=== PATIENT | male | born 1940 | race Caucasian/White ===

== ENCOUNTER → 2018-07-08 11:35 | Outpatient (CLI) | payer MEDICARE, OTHER, SELFPAY ==
[2018-07-08 12:09] LABS: Add Manual Diff / Slide Review NO; Eosinophils Percent Auto 2.6 % (2-4); Hematocrit 40.6 % (41-53); Mean Corpuscular HGB Conc 34.5 % (30-36); Mean Corpuscular Hemoglobin 32.6 PG (26-34); Mean Corpuscular Volume 94.5 fL (80-100); Monocytes Percent Auto 11.2 % (3-14); Neutrophils Absolute Auto 3800 /uL (3000-5900); Neutrophils Percent Auto 67.2 % (50-75); Platelet Count 279 X10^3/uL (150-400); Red Cell Distribution Width 13.2 % (11.6-14.8); White Blood Cell Count 5.7 X10^3/uL (4.5-11.0)
[2018-07-08 12:45] LABS: Alanine Aminotransferase 30 IU/L (21-72); Albumin 4.1 g/dL (3.5-5.0); Albumin Globulin Ratio 1.5 (1.0-2.8); Alkaline Phosphatase 57 U/L (38-126); Aspartate Aminotransferase 53 IU/L (17-59); Bilirubin Total 0.8 mg/dL (0.2-1.3); Blood Urea Nitrogen 6 mg/dL (9-20); Calcium 9.5 mg/dL (8.4-10.2); Carbon Dioxide 29 mmol/L (22-32); Chloride 99 mmol/L (98-107); Estimated Glomerular Filt Rate > 60.0 mL/min (>60); Globulin 2.7 g/dL (1.7-4.1); Glucose 96 mg/dL (80-110); HEMOLYSIS < 15 (0-50); Potassium 4.7 mmol/L (3.4-5.1); Sodium 135 mmol/L (137-145); Total Protein 6.8 g/dL (6.3-8.2)
[2018-07-08 12:52] LABS: Free T4, Direct Thyroxine 1.55 ng/dL (0.78-2.19)
[2018-07-08 13:06] LABS: Thyroid Stimulating Hormone 0.26 uIU/mL (0.47-4.68)
== END ==
PROVIDERS: PCP Internal Medicine; Visit Provider Internal Medicine
DX: E03.9 Hypothyroidism, unspecified (principal); I10 Essential (primary) hypertension; I25.10 Atherosclerotic heart disease of native coronary artery without angina pectoris
CPT/HCPCS: 80053; 84439; 84443; 85025

== ENCOUNTER → 2018-08-04 11:00 | Outpatient (CLI) | payer MEDICARE, OTHER, SELFPAY ==
--- NOTE | 2018-08-19 07:48 | P.HOLT.S_ITS ---
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 Referral & Results Date Patient Seen: 08/04/18 Requesting provider: Uriah Mooney Indication: Cardiac arrhythmia Duration of monitoring (days): 7 Diary information: There were no patient diary entries and no patient triggered events Data: Minimum heart rate identified was 55 beats per minute at 07:49 on 2017 Maximum sinus heart rate was 123 beats per minute at 22:36 on 08/08/2018 Maximum overall heart rate was 130 beats per minute at 10:01 on 08/10/2018 occurring during a 7 beat run of supraventricular tachycardia Less than 1% of identified beats or either ventricular supraventricular ectopic in origin Impression: 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
== END ==
PROVIDERS: PCP Internal Medicine; Visit Provider Internal Medicine
DX: I49.9 Cardiac arrhythmia, unspecified (principal)
CPT/HCPCS: 0296T; 0298T

== ENCOUNTER → 2019-02-08 10:43 | Outpatient (CLI) | payer MEDICARE, OTHER, SELFPAY ==
[2019-02-08 11:16] LABS: Add Manual Diff / Slide Review NO; Basophils Absolute Auto 100 /uL (0-100); Basophils Percent Auto 1.7 % (0-2); Eosinophils Absolute Auto 400 /uL (0-450); Eosinophils Percent Auto 6.8 % (2-4); Hematocrit 42.4 % (41-53); Hemoglobin 14.6 g/dL (13.5-17.5); Lymphocytes Absolute Auto 1200 /uL (1100-4500); Lymphocytes Percent Auto 22.4 % (25-40); Mean Corpuscular HGB Conc 34.4 % (30-36); Mean Corpuscular Hemoglobin 31.2 PG (26-34); Mean Corpuscular Volume 90.5 fL (80-100); Monocytes Absolute Auto 600 /uL (0-900); Monocytes Percent Auto 12.1 % (3-14); Neutrophils Absolute Auto 3000 /uL (1500-7000); Platelet Count 275 X10^3/uL (150-400); Red Blood Cell Count 4.68 X10^6/uL (4.5-5.9); Red Cell Distribution Width 13.2 % (11.6-14.8); White Blood Cell Count 5.3 X10^3/uL (4.5-11.0)
[2019-02-08 11:44] LABS: Alanine Aminotransferase 29 IU/L (21-72); Albumin 4.5 g/dL (3.5-5.0); Albumin Globulin Ratio 1.4 (1.0-2.8); Alkaline Phosphatase 58 U/L (38-126); Aspartate Aminotransferase 52 IU/L (17-59); Bilirubin Total 0.8 mg/dL (0.2-1.3); Blood Urea Nitrogen 12 mg/dL (9-20); Calcium 9.1 mg/dL (8.4-10.2); Carbon Dioxide 28 mmol/L (22-32); Chloride 100 mmol/L (98-107); Cholesterol 201 mg/dL (140-199); Estimated Glomerular Filt Rate > 60.0 mL/min (>60); Globulin 3.2 g/dL (1.7-4.1); Glucose 94 mg/dL (80-110); HDL Cholesterol 72 mg/dL (40-60); HEMOLYSIS < 15 (0-50); LDL Cholesterol Calculated 120 mg/dL (<100); Potassium 4.6 mmol/L (3.4-5.1); Sodium 136 mmol/L (137-145); Total Protein 7.7 g/dL (6.3-8.2); Triglycerides 45 mg/dL (35-150)
[2019-02-08 12:15] LABS: Free T4, Direct Thyroxine 1.95 ng/dL (0.78-2.19)
[2019-02-08 12:29] LABS: Thyroid Stimulating Hormone 0.12 uIU/mL (0.47-4.68)
== END ==
PROVIDERS: PCP Internal Medicine; Visit Provider Internal Medicine
DX: E03.9 Hypothyroidism, unspecified (principal); E04.1 Nontoxic single thyroid nodule; E78.5 Hyperlipidemia, unspecified; I10 Essential (primary) hypertension; I25.10 Atherosclerotic heart disease of native coronary artery without angina pectoris
CPT/HCPCS: 36415; 80053; 80061; 84439; 84443; 85025

== ENCOUNTER → 2019-02-23 12:39 | Outpatient (CLI) | payer MEDICARE, OTHER, SELFPAY | PROVIDERS: PCP Internal Medicine; Visit Provider Internal Medicine | DX: R20.2 Paresthesia of skin (principal) | CPT/HCPCS: 95885; 95886; 95912 ==

== ENCOUNTER → 2019-04-06 14:28 | Outpatient (CLI) | payer MEDICARE, OTHER, SELFPAY ==
[2019-04-06 16:44] LABS: BUN Creatinine Ratio 16.7 (6-22); Blood Urea Nitrogen 10 mg/dL (9-20); Calcium 9.7 mg/dL (8.4-10.2); Carbon Dioxide 28 mmol/L (22-32); Chloride 87 mmol/L (98-107); Estimated Glomerular Filt Rate > 60.0 mL/min (>60); Glucose 118 mg/dL (80-110); HEMOLYSIS 16 (0-50); Potassium 4.7 mmol/L (3.4-5.1); Sodium 123 mmol/L (137-145)
== END ==
PROVIDERS: PCP Internal Medicine; Visit Provider Hospitalist
DX: I10 Essential (primary) hypertension (principal)
CPT/HCPCS: 36415; 80048

== ENCOUNTER → 2019-12-08 15:12 | Outpatient (CLI) | payer MEDICARE, OTHER, SELFPAY ==
--- NOTE | 2019-12-08 15:16 | DI.RAD.S_ITS ---
PROCEDURE: XR CHEST 2V INDICATIONS: cough TECHNIQUE: 2 views of the chest were acquired. COMPARISON: [facility], , CHEST 1 VIEW, 06/29/2016, 17:01. FINDINGS: Surgical changes and devices: None. Lungs and pleura: Scattered subsegmental atelectasis and/or scarring. No focal consolidation. No pleural effusions or pneumothorax. Mediastinum: Mediastinal contours are normal. Heart size is normal. Bones and chest wall: No suspicious bony abnormalities. Soft tissues appear unremarkable. Scoliosis and discogenic changes. IMPRESSION: Scattered subsegmental atelectasis and/or scarring. No acute consolidation. Dictated by: Kendall Miller M.D. on 12/08/2019 at 16:55 Approved by: Kendall Miller M.D. on 12/08/2019 at 16:56
[2019-12-08 18:17] LABS: Add Manual Diff / Slide Review NO; Basophils Absolute Auto 100 /uL (0-100); Basophils Percent Auto 1.1 % (0-2); Eosinophils Absolute Auto 200 /uL (0-450); Eosinophils Percent Auto 3.1 % (2-4); Hematocrit 41.7 % (41-53); Hemoglobin 14.4 g/dL (13.5-17.5); Lymphocytes Absolute Auto 1500 /uL (1100-4500); Lymphocytes Percent Auto 20.2 % (25-40); Mean Corpuscular HGB Conc 34.5 % (30-36); Mean Corpuscular Hemoglobin 32.4 PG (26-34); Monocytes Absolute Auto 700 /uL (0-900); Monocytes Percent Auto 9.9 % (3-14); Neutrophils Absolute Auto 4700 /uL (1500-7000); Neutrophils Percent Auto 65.7 % (50-75); Platelet Count 289 X10^3/uL (150-400); Red Blood Cell Count 4.44 X10^6/uL (4.5-5.9); Red Cell Distribution Width 13.3 % (11.6-14.8); White Blood Cell Count 7.2 X10^3/uL (4.5-11.0)
[2019-12-08 18:53] LABS: Alanine Aminotransferase 17 IU/L (<50); Albumin 4.4 g/dL (3.5-5.0); Albumin Globulin Ratio 1.4 (1.0-2.8); Alkaline Phosphatase 69 U/L (38-126); Aspartate Aminotransferase 48 IU/L (17-59); Bilirubin Total 0.8 mg/dL (0.2-1.3); Blood Urea Nitrogen 10 mg/dL (9-20); Calcium 9.5 mg/dL (8.4-10.2); Carbon Dioxide 27 mmol/L (22-32); Chloride 95 mmol/L (98-107); Estimated Glomerular Filt Rate > 60.0 mL/min (>60); Globulin 3.2 g/dL (1.7-4.1); Glucose 90 mg/dL (80-110); HEMOLYSIS < 15 (0-50); Potassium 4.9 mmol/L (3.4-5.1); Sodium 132 mmol/L (137-145); Total Protein 7.6 g/dL (6.3-8.2)
[2019-12-08 19:01] LABS: NT-proBNP (BNP-Adult 18+) 263 pg/mL (<450)
[2019-12-08 19:08] LABS: Free T4, Direct Thyroxine 1.91 ng/dL (0.78-2.19)
[2019-12-08 19:22] LABS: Thyroid Stimulating Hormone 0.07 uIU/mL (0.47-4.68)
== END ==
PROVIDERS: PCP Internal Medicine; Referring Provider Internal Medicine; Visit Provider Internal Medicine
DX: R05 Cough (principal); E03.9 Hypothyroidism, unspecified; E78.5 Hyperlipidemia, unspecified; I25.10 Atherosclerotic heart disease of native coronary artery without angina pectoris
CPT/HCPCS: 36415; 71046; 80053; 83880; 84439; 84443; 85025

== ENCOUNTER → 2021-03-12 14:20 | Outpatient (CLI) | payer MEDICARE, OTHER, SELFPAY ==
[2021-03-12 15:27] LABS: Add Manual Diff / Slide Review NO; Basophils Absolute Auto 100 /uL (0-100); Basophils Percent Auto 1.3 % (0-2); Eosinophils Absolute Auto 200 /uL (0-450); Eosinophils Percent Auto 2.5 % (2-4); Hematocrit 40.6 % (41-53); Lymphocytes Absolute Auto 1400 /uL (1100-4500); Lymphocytes Percent Auto 17.3 % (25-40); Mean Corpuscular HGB Conc 34.6 % (30-36); Mean Corpuscular Hemoglobin 31.5 PG (26-34); Mean Corpuscular Volume 91.1 fL (80-100); Monocytes Absolute Auto 800 /uL (0-900); Monocytes Percent Auto 9.7 % (3-14); Neutrophils Absolute Auto 5400 /uL (1500-7000); Neutrophils Percent Auto 69.2 % (50-75); Platelet Count 264 X10^3/uL (150-400); Red Blood Cell Count 4.45 X10^6/uL (4.5-5.9); White Blood Cell Count 7.8 X10^3/uL (4.5-11.0)
[2021-03-12 16:03] LABS: Alanine Aminotransferase 18 IU/L (<50); Albumin 4.1 g/dL (3.5-5.0); Albumin Globulin Ratio 1.3 (1.0-2.8); Alkaline Phosphatase 68 U/L (38-126); Aspartate Aminotransferase 51 IU/L (17-59); BUN Creatinine Ratio 19.2 (6-22); Bilirubin Total 0.6 mg/dL (0.2-1.3); Blood Urea Nitrogen 10 mg/dL (9-20); Calcium 9.4 mg/dL (8.4-10.2); Carbon Dioxide 25 mmol/L (22-32); Chloride 102 mmol/L (98-107); Cholesterol 176 mg/dL (140-199); Estimated Glomerular Filt Rate > 60.0 mL/min (>60); Globulin 3.1 g/dL (1.7-4.1); Glucose 98 mg/dL (80-110); HDL Cholesterol 79 mg/dL (40-60); HEMOLYSIS < 15 (0-50); LDL Cholesterol Calculated 82 mg/dL (<100); Sodium 133 mmol/L (137-145); Total Protein 7.2 g/dL (6.3-8.2); Triglycerides 73 mg/dL (35-150)
[2021-03-12 16:34] LABS: Prostate Specific Antigen Scrn 0.549 ng/mL (0.1-4.0)
[2021-03-12 18:11] LABS: TSH w/ Reflex to FT4 0.05 uIU/mL (0.47-4.68)
[2021-03-12 18:55] LABS: Free T4, Direct Thyroxine 2.02 ng/dL (0.78-2.19)
[2021-03-12 20:12] LABS: Creatinine Urine Random 38.3 mg/dL
[2021-03-12 20:20] LABS: Microalbumin Urine Random < 0.6 mg/dL (0-1.6)
== END ==
PROVIDERS: PCP Family Medicine; Referring Provider Family Medicine; Visit Provider Family Medicine
DX: I10 Essential (primary) hypertension (principal); C61 Malignant neoplasm of prostate; E03.9 Hypothyroidism, unspecified; E78.2 Mixed hyperlipidemia; G89.29 Other chronic pain; I25.10 Atherosclerotic heart disease of native coronary artery without angina pectoris; M54.5 Low back pain; Z12.5 Encounter for screening for malignant neoplasm of prostate
CPT/HCPCS: 36415; 80053; 80061; 82043; 82570; 84439; 84443; 85025; G0103

== ENCOUNTER 2021-06-04 14:30 | Outpatient (RCR) | payer MEDICARE, OTHER, SELFPAY ==
--- NOTE | 2021-04-23 12:45 | PT.OPPOC ---
Physical, Occupational & Speech Therapy At [facility] Current Diagnoses Other chronic pain (04/23/21) Low back pain (04/23/21) Unspecified abnormalities of gait and mobility (04/23/21) Visit Care Team Role Provider Type Mikhail Madsen MD Attending Provider Physician Primary Care Provider Referring Provider Specialty: [facility] Address: [address] [place] [address], [facility] Email: [email or web address] Plan Of Care PT-OP-T Assessment and Plan Start: 04/23/21 12:42 Freq: Status: Active Protocol: Document 04/23/21 12:00 DCW (Rec: 04/24/21 10:10 DCW [id number]) Physical Therapy Assessment Rehab Potential Rehabilitation Potential Fair Evaluation Complexity Number of Personal Factors/Comorbidities 1-2 Number of Body Systems Impaired 3 Clinical Presentation at Evaluation Unstable Impairments Impairments Activity Tolerance,Balance, Functional Activities, Functional Mobility,Gait,Pain, Posture,Strength Other Concerns Fall Risk Yes, per Escobar score (39/56) Barriers to Rehabilitation 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 I can probably only do once a week, and even then, it's really hard for me to make it, because I don't know how my will be feeling on any particular day. Goals Four Impairment Pt has increased left foot drop when fatigued Lathe Mechanic Goal (LTG) Pt to complete a 6 MWT with no left foot drop. LTG Duration 07/24/21 Three Impairment Pt experiences fatigue and pain walking more than 300' [facility] Goal (LTG) Pt to report ability to walk from his house to his barn and back (600' total) without increased back pain or fatigue to allow for easier completion of yard work. LTG Duration 07/24/21 Two Impairment Pt presents as a falls risk, per Escobar score (39/56) [facility] Goal (LTG) Pt to increase score on Escobar by at leasst 6 points to 45/56 in order to decrease fall risk LTG Duration 07/24/21 One Impairment Pt does not have an appropriate home exercise program Short Term Goal (STG) Pt to be independent and compliant with an appropriate HEP STG Duration 05/23/21 Assessment Summary Assessment Pt presents with multiple complaints over his entire body. Pt's main concerns are worsening balance, decreased activity tolerance, left foot drop, lumbar pain, and worsening posture. Pt's balance testing shows an increased fall risk, per Escobar score (39/56). 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 Pt should benefit from skilled therapy focusing on ankle strengthening, increasing activity tolerance, balance training, posture training, and gait training. Physical Therapy Plan Frequency and Duration Frequency of Treatment 1x/Week Duration of Treatment Three months Plan of Care Start Date 04/23/21 Plan of Care End Date 07/24/21 Therapeutic Interventions Therapeutic Interventions Balance Training,Coordination Training,Home Exercise Program ,Manual Therapy,Neuromuscular Re-education,Patient/Caregiver Education,Self-Care/Home Management,Soft Tissue Mobilization,Therapeutic Activities,Therapeutic Exercises Next Visit Focus/Plan Next Note Type Treatment Note Next Visit Plan Ankle strengthening, balance training, activity tolerance Plan of Care Dates Plan of Care Start Date 04/23/21 Plan of Care End Date 07/24/21 Electronically Signed by: Ramon Harrington, PT 04/24/21 1013 Please Sign and Return: I have reviewed this Plan of Care and certify that the skilled therapy services above are required to meet the patient?s needs. Physician Signature Date Printed Name and Credentials Clinical Instructor Signature Printed Name and Credentials
--- NOTE | 2021-04-23 12:45 | PT.OPPOC ---
Physical, Occupational & Speech Therapy At [facility] Current Diagnoses Other chronic pain (04/23/21) Low back pain (04/23/21) Unspecified abnormalities of gait and mobility (04/23/21) Visit Care Team Role Provider Type Mikhail Madsen MD Attending Provider Physician Primary Care Provider Referring Provider Specialty: [facility] Address: [address] [place] [address], [facility] Email: [email or web address] Plan Of Care PT-OP-T Assessment and Plan Start: 04/23/21 12:42 Freq: Status: Active Protocol: Document 04/23/21 12:00 DCW (Rec: 04/24/21 10:10 DCW [id number]) Physical Therapy Assessment Rehab Potential Rehabilitation Potential Fair Evaluation Complexity Number of Personal Factors/Comorbidities 1-2 Number of Body Systems Impaired 3 Clinical Presentation at Evaluation Unstable Impairments Impairments Activity Tolerance,Balance, Functional Activities, Functional Mobility,Gait,Pain, Posture,Strength Other Concerns Fall Risk Yes, per Escobar score (39/56) Barriers to Rehabilitation 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 I can probably only do once a week, and even then, it's really hard for me to make it, because I don't know how my will be feeling on any particular day. Goals Four Impairment Pt has increased left foot drop when fatigued Band Reamer Machine Operator Goal (LTG) Pt to complete a 6 MWT with no left foot drop. LTG Duration 07/24/21 Three Impairment Pt experiences fatigue and pain walking more than 300' Alf Goal (LTG) Pt to report ability to walk from his house to his barn and back (600' total) without increased back pain or fatigue to allow for easier completion of yard work. LTG Duration 07/24/21 Two Impairment Pt presents as a falls risk, per Escobar score (39/56) Alf Goal (LTG) Pt to increase score on Escobar by at leasst 6 points to 45/56 in order to decrease fall risk LTG Duration 07/24/21 One Impairment Pt does not have an appropriate home exercise program Short Term Goal (STG) Pt to be independent and compliant with an appropriate HEP STG Duration 05/23/21 Assessment Summary Assessment Pt presents with multiple complaints over his entire body. Pt's main concerns are worsening balance, decreased activity tolerance, left foot drop, lumbar pain, and worsening posture. Pt's balance testing shows an increased fall risk, per Escobar score (39/56). 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 Pt should benefit from skilled therapy focusing on ankle strengthening, increasing activity tolerance, balance training, posture training, and gait training. Physical Therapy Plan Frequency and Duration Frequency of Treatment 1x/Week Duration of Treatment Three months Plan of Care Start Date 04/23/21 Plan of Care End Date 07/24/21 Therapeutic Interventions Therapeutic Interventions Balance Training,Coordination Training,Home Exercise Program ,Manual Therapy,Neuromuscular Re-education,Patient/Caregiver Education,Self-Care/Home Management,Soft Tissue Mobilization,Therapeutic Activities,Therapeutic Exercises Next Visit Focus/Plan Next Note Type Treatment Note Next Visit Plan Ankle strengthening, balance training, activity tolerance Plan of Care Dates Plan of Care Start Date 04/23/21 Plan of Care End Date 07/24/21 Electronically Signed by: Ramon Harrington, PT 04/24/21 1012 Please Sign and Return: I have reviewed this Plan of Care and certify that the skilled therapy services above are required to meet the patient?s needs. Physician Signature Date Printed Name and Credentials Clinical Instructor Signature Printed Name and Credentials
--- NOTE | 2021-04-23 12:45 | PT.OIE ---
Current Diagnoses Other chronic pain (04/23/21) Low back pain (04/23/21) Unspecified abnormalities of gait and mobility (04/23/21) Past Medical History (Last Reviewed 03/12/21 @ 14:23 by Mikhail Madsen MD) Abnormal gait Acquired hypothyroidism Atherosclerosis of right carotid artery Chronic back pain (1989) Chronic low back pain without sciatica (09/13/14) Coronary artery disease Foot pain (2014) Hearing loss (1994) Hyperlipidemia Hypertension Neuropathy Osteoporosis (2015) Polymyalgia rheumatica (02/23/14) Rheumatic fever (1945) Thyroid nodule (1977) Unilateral inguinal hernia (08/06/11) Urinary incontinence (2015) Past Surgical History (Last Reviewed 03/12/21 @ 14:23 by Mikhail Madsen MD) Anesthesia History of heart artery stent (2007) History of left inguinal hernia repair Status post bilateral hernia repair (1994) Visit Care Team Role Provider Type Mikhail Madsen MD Attending Provider Physician Primary Care Provider Referring Provider Specialty: [facility] Address: [address] [place] [address] Email: [email or web address] Physical Therapy Initial Evaluation PT-OP-A Visit Information Start: 04/23/21 12:42 Freq: Status: Active Protocol: Document 04/23/21 12:00 DCW (Rec: 04/23/21 17:59 DCW [id number]) Out-Patient Physical Therapy Visit Information Visit Information Visit Type Initial Evaluation Visit Start Time 12:00 Visit Stop Time 12:45 Total Visit Minutes 45 Visit Number 1 Number of CONTACT CENTER TEAM LEAD Visits 0 Evaluation Information Evaluation Date 04/23/21 PT-OP-B Current Condition Start: 04/23/21 12:42 Freq: Status: Active Protocol: Document 04/23/21 12:00 DCW (Rec: 04/24/21 10:10 DCW [id number]) Current Condition History of Current Condition Onset Date Multi-year history Current Complaints Balance, back pain, fatigue, foot drop History of Current Condition Pt is an 80 year old male presenting to skilled PT with multiple complaints. 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 Pt reports that he has to get up early, care for his , do all the house and yard work, and by the end of the day, he is completely wiped out, but needs to just get up and do everything again the next day. Pt reports he has noticed a lot of increased path deviation when walking, as his back and leg pain limit his ability to walk. Pt struggles to get down to his barn, which is 300 feet from his house. Pt also notes he has trouble with his left foot , noticing foot drag/drop frequently, especially when he is tired. Treatment Goals Patient/Caregiver Goals Improvement. PT-OP-C Subjective Start: 04/23/21 12:42 Freq: Status: Active Protocol: Document 04/23/21 12:00 DCW (Rec: 04/23/21 17:59 DCW [id number]) OP-PT Subjective Patient Comments Patient Comments I don't know if this is the right avenue for me or not. Patient Reported Progress Same Patient Questionnaires Lower Extremity Functional Scale LEFS Score 31.25% PT-OP-D Balance Start: 04/23/21 12:42 Freq: Status: Active Protocol: Document 04/23/21 12:00 DCW (Rec: 04/24/21 09:49 DCW [id number]) Balance Tests Escobar Balance Test Escobar Balance Test Score 40/56 Escobar Impairment Rating 20 to 39% Impaired (Score 34- 44) Escobar Balance Assessment Evaluation Sitting to Standing Ability Independent w/out Hands Unsupported Stance 30 seconds Sitting Unsupported, Feet on Floor Safely- 2 minutes Standing to Sitting Ability Safely, Minimal Hand Use Transfer Ability Safely, Hand Use Unsupported Stance- Eyes Closed Safely, 10 seconds Unsupported Stance- Eyes Open Independent, <30 seconds Reaching Forward Standing Safely, 5 inches Pick- Up Object From Floor Independent/Safe Look Behind Shoulder - Standing Turns Sideways Only Turning 360 Degrees Turns slowly, but safely Unsupported Stance, Alternating Feet on 4 Steps w/Supervision Stair Unsupported Tandem Stance Small Step- 30 seconds Unilateral Leg Stance Lifts Leg/Unable to Hold Total Score Escobar Total Score (out of 56 points) 39 PT-OP-E Functional Tests Start: 04/23/21 12:42 Freq: Status: Active Protocol: Document 04/23/21 12:00 DCW (Rec: 04/24/21 10:10 DCW [id number]) Functional Tests Timed Up and Go (TUG) Score 10.10 Comments 3-trial average (10.38, 9.88, 10.03) TUG Impairment Rating 1 to <20% Impaired (Score 11) PT-OP-J Posture/Palpation/Skin Start: 04/23/21 12:42 Freq: Status: Active Protocol: Document 04/23/21 12:00 DCW (Rec: 04/24/21 10:10 [facility] [id number]) Posture Evaluation Position Standing Evaluation View Lateral Head/C-Spine Posture Flexed,Forward Head T-Spine Posture Increased Kyphosis Shoulder Posture (L) Forward,(R) Forward Scapula Posture (L) Protracted,(R) Protracted PT-OP-M Strength Start: 04/23/21 12:42 Freq: Status: Active Protocol: Document 04/23/21 12:00 DCW (Rec: 04/24/21 10:10 [facility] [id number]) Hip Strength Hip Manual Muscle Testing Right Flexion (L2) 4- Good- Abduction 4- Good- Adduction 4- Good- External Rotation 4- Good- Internal Rotation 4- Good- Left Flexion (L2) 4- Good- Abduction 4- Good- Adduction 4- Good- External Rotation 4- Good- Internal Rotation 4- Good- Knee Strength Knee Manual Muscle Testing Right Flexion (S2) 4- Good- Extension (L3) 4 Good Left Flexion (S2) 4- Good- Extension (L3) 4 Good Ankle/Foot Strength Ankle and Foot Manual Muscle Testing Right Dorsiflexion (L4) 4- Good- Plantarflexion (S1) 4- Good- Left Dorsiflexion (L4) 3+ Fair+ Plantarflexion (S1) 4- Good- PT-OP-T Assessment and Plan Start: 04/23/21 12:42 Freq: Status: Active Protocol: Document 04/23/21 12:00 DCW (Rec: 04/24/21 10:10 [facility] [id number]) Physical Therapy Assessment Rehab Potential Rehabilitation Potential Fair Evaluation Complexity Number of Personal Factors/Comorbidities 1-2 Number of Body Systems Impaired 3 Clinical Presentation at Evaluation Unstable Impairments Impairments Activity Tolerance,Balance, Functional Activities, Functional Mobility,Gait,Pain, Posture,Strength Other Concerns Fall Risk Yes, per Escobar score (39/56) Barriers to Rehabilitation 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 I can probably only do once a week, and even then, it's really hard for me to make it, because I don't know how my will be feeling on any particular day. Goals Four Impairment Pt has increased left foot drop when fatigued [employer] Terrazzo Finisher Goal (LTG) Pt to complete a 6 MWT with no left foot drop. LTG Duration 07/24/21 Three Impairment Pt experiences fatigue and pain walking more than 300' Long-Term Goal (LTG) Pt to report ability to walk from his house to his barn and back (600' total) without increased back pain or fatigue to allow for easier completion of yard work. LTG Duration 07/24/21 Two Impairment Pt presents as a falls risk, per Escobar score (39/56) [employer]razzo Finisher Goal (LTG) Pt to increase score on Escobar by at leasst 6 points to 45/56 in order to decrease fall risk LTG Duration 07/24/21 One Impairment Pt does not have an appropriate home exercise program Short Term Goal (STG) Pt to be independent and compliant with an appropriate HEP STG Duration 05/23/21 Assessment Summary Assessment Pt presents with multiple complaints over his entire body. Pt's main concerns are worsening balance, decreased activity tolerance, left foot drop, lumbar pain, and worsening posture. Pt's balance testing shows an increased fall risk, per Escobar score (39/56). 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 Pt should benefit from skilled therapy focusing on ankle strengthening, increasing activity tolerance, balance training, posture training, and gait training. Physical Therapy Plan Frequency and Duration Frequency of Treatment 1x/Week Duration of Treatment Three months Plan of Care Start Date 04/23/21 Plan of Care End Date 07/24/21 Therapeutic Interventions Therapeutic Interventions Balance Training,Coordination Training,Home Exercise Program ,Manual Therapy,Neuromuscular Re-education,Patient/Caregiver Education,Self-Care/Home Management,Soft Tissue Mobilization,Therapeutic Activities,Therapeutic Exercises Next Visit Focus/Plan Next Note Type Treatment Note Next Visit Plan Ankle strengthening, balance training, activity tolerance
--- NOTE | 2021-04-30 15:14 | PT.OTN ---
Current Diagnoses Other chronic pain (04/30/21) Low back pain (04/30/21) Unspecified abnormalities of gait and mobility (04/30/21) Physical Therapy Treatment Note PT-OP-A Visit Information Start: 04/23/21 12:42 Freq: Status: Active Protocol: Document 04/30/21 14:30 DCW (Rec: 04/30/21 15:14 DCW [id number]) Out-Patient Physical Therapy Visit Information Visit Information Visit Type Treatment Note Visit Start Time 14:30 Visit Stop Time 15:15 Total Visit Minutes 45 Visit Number 2 Number of IMAGING AIDE Visits 0 Evaluation Information Evaluation Date 04/23/21 PT-OP-B Current Condition Start: 04/23/21 12:42 Freq: Status: Active Protocol: Document 04/23/21 12:00 DCW (Rec: 04/24/21 10:10 DCW [id number]) Current Condition History of Current Condition Onset Date Multi-year history Current Complaints Balance, back pain, fatigue, foot drop History of Current Condition Pt is an 80 year old male presenting to skilled PT with multiple complaints. 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 Pt reports that he has to get up early, care for his , do all the house and yard work, and by the end of the day, he is completely wiped out, but needs to just get up and do everything again the next day. Pt reports he has noticed a lot of increased path deviation when walking, as his back and leg pain limit his ability to walk. Pt struggles to get down to his barn, which is 300 feet from his house. Pt also notes he has trouble with his left foot , noticing foot drag/drop frequently, especially when he is tired. Treatment Goals Patient/Caregiver Goals Improvement. PT-OP-C Subjective Start: 04/23/21 12:42 Freq: Status: Active Protocol: Document 04/30/21 14:30 DCW (Rec: 04/30/21 15:14 DCW [id number]) OP-PT Subjective Patient Comments Patient Comments I almost with all that heat the past few days. PT-OP-D Balance Start: 04/23/21 12:42 Freq: Status: Active Protocol: Document 04/23/21 12:00 DCW (Rec: 04/24/21 09:49 [facility] [id number]) Balance Tests Escobar Balance Test Escobar Balance Test Score 40/56 Escobar Impairment Rating 20 to 39% Impaired (Score 34- 44) Escobar Balance Assessment Evaluation Sitting to Standing Ability Independent w/out Hands Unsupported Stance 30 seconds Sitting Unsupported, Feet on Floor Safely- 2 minutes Standing to Sitting Ability Safely, Minimal Hand Use Transfer Ability Safely, Hand Use Unsupported Stance- Eyes Closed Safely, 10 seconds Unsupported Stance- Eyes Open Independent, <30 seconds Reaching Forward Standing Safely, 5 inches Pick- Up Object From Floor Independent/Safe Look Behind Shoulder - Standing Turns Sideways Only Turning 360 Degrees Turns slowly, but safely Unsupported Stance, Alternating Feet on 4 Steps w/Supervision Stair Unsupported Tandem Stance Small Step- 30 seconds Unilateral Leg Stance Lifts Leg/Unable to Hold Total Score Escobar Total Score (out of 56 points) 39 PT-OP-E Functional Tests Start: 04/23/21 12:42 Freq: Status: Active Protocol: Document 04/23/21 12:00 DCW (Rec: 04/24/21 10:10 [facility] [id number]) Functional Tests Timed Up and Go (TUG) Score 10.10 Comments 3-trial average (10.38, 9.88, 10.03) TUG Impairment Rating 1 to <20% Impaired (Score 11) PT-OP-J Posture/Palpation/Skin Start: 04/23/21 12:42 Freq: Status: Active Protocol: Document 04/23/21 12:00 DCW (Rec: 04/24/21 10:10 [facility] [id number]) Posture Evaluation Position Standing Evaluation View Lateral Head/C-Spine Posture Flexed,Forward Head T-Spine Posture Increased Kyphosis Shoulder Posture (L) Forward,(R) Forward Scapula Posture (L) Protracted,(R) Protracted PT-OP-M Strength Start: 04/23/21 12:42 Freq: Status: Active Protocol: Document 04/23/21 12:00 DCW (Rec: 04/24/21 10:10 [facility] [id number]) Hip Strength Hip Manual Muscle Testing Right Flexion (L2) 4- Good- Abduction 4- Good- Adduction 4- Good- External Rotation 4- Good- Internal Rotation 4- Good- Left Flexion (L2) 4- Good- Abduction 4- Good- Adduction 4- Good- External Rotation 4- Good- Internal Rotation 4- Good- Knee Strength Knee Manual Muscle Testing Right Flexion (S2) 4- Good- Extension (L3) 4 Good Left Flexion (S2) 4- Good- Extension (L3) 4 Good Ankle/Foot Strength Ankle and Foot Manual Muscle Testing Right Dorsiflexion (L4) 4- Good- Plantarflexion (S1) 4- Good- Left Dorsiflexion (L4) 3+ Fair+ Plantarflexion (S1) 4- Good- PT-OP-Q Treatments Start: 04/23/21 12:42 Freq: Status: Active Protocol: Document 04/30/21 14:30 DCW (Rec: 04/30/21 15:14 DCW [id number]) Cardio Equipment Recumbent Elliptical ([employer]) Duration (Minutes) 5 Resistance 3 Seat Position 10 Gym Equipment Therapeutic Ball 1 Exercise Details Low Trunk Rotations Ball Size/Color Blue - 45 cm Body Position Supine Therapeutic Exercises Supine Exercises 1 Supine Exercise Name Piriformis stretch - Knee to opposite shoulder Sidelying Exercises 3 Sidelying Exercise Name Reverse Clamshell Side bilateral 2 Sidelying Exercise Name Clamshell Side bilateral 1 Sidelying Exercise Name Open Book Side bilateral Sitting Exercises 1 Sitting Exercise Name Dorsiflexion Side bilateral Resistance Lv 2 Equipment Used T-band Neuro Re-Education Treatment Balance Activities 3 Details Balance board Comments Fwd/Bkwd, Lateral 2 Details Foam stance Surface Blue foam Equipment // bars 1 Details Tandem Stance Equipment // bars PT-OP-T Assessment and Plan Start: 04/23/21 12:42 Freq: Status: Active Protocol: Document 04/30/21 14:30 DCW (Rec: 04/30/21 15:14 DCW [id number]) Physical Therapy Assessment Impairments Impairments Activity Tolerance,Balance, Functional Activities, Functional Mobility,Gait,Pain, Posture,Strength Goals Four Impairment Pt has increased left foot drop when fatigued Prison Goal (LTG) Pt to complete a 6 MWT with no left foot drop. LTG Duration 07/24/21 Three Impairment Pt experiences fatigue and pain walking more than 300' Prison Goal (LTG) Pt to report ability to walk from his house to his barn and back (600' total) without increased back pain or fatigue to allow for easier completion of yard work. LTG Duration 07/24/21 Two Impairment Pt presents as a falls risk, per Escobar score (39/56) Pre Wave Assembler Goal (LTG) Pt to increase score on Escobar by at leasst 6 points to 45/56 in order to decrease fall risk LTG Duration 07/24/21 One Impairment Pt does not have an appropriate home exercise program Short Term Goal (STG) Pt to be independent and compliant with an appropriate HEP STG Duration 05/23/21 Assessment Summary Assessment Pt tolerated treatment well today, despite some hesitation with supine exercises, as that position is usually painful for him. Pt did feel like he improved after getting looser, and was agreeable to perform side-lying TherEx as HEP. Physical Therapy Plan Frequency and Duration Frequency of Treatment 1x/Week Duration of Treatment Three months Plan of Care Start Date 04/23/21 Plan of Care End Date 07/24/21 Therapeutic Interventions Therapeutic Interventions Balance Training,Coordination Training,Home Exercise Program ,Manual Therapy,Neuromuscular Re-education,Patient/Caregiver Education,Self-Care/Home Management,Soft Tissue Mobilization,Therapeutic Activities,Therapeutic Exercises Next Visit Focus/Plan Next Note Type Treatment Note Next Visit Plan Ankle strengthening, balance training, activity tolerance
--- NOTE | 2021-05-07 14:21 | PT-OP ANOTE ---
Pt unfortunately arrived 30 minutes late for his appointment due to extensive delays related to the ferry trip to [place]. Pt requested just a brief review of his HEP, and was given two handouts to help him remember. Pt apologized, and reported he will try to get here on time next week.
--- NOTE | 2021-05-13 15:33 | PT.OTN ---
Current Diagnoses Other chronic pain (05/13/21) Low back pain (05/13/21) Unspecified abnormalities of gait and mobility (05/13/21) Physical Therapy Treatment Note PT-OP-A Visit Information Start: 04/23/21 12:42 Freq: Status: Active Protocol: Document 05/13/21 14:32 MA (Rec: 05/13/21 15:18 MA [id number]) Out-Patient Physical Therapy Visit Information Visit Information Visit Type Treatment Note Visit Start Time 14:30 Visit Stop Time 15:13 Total Visit Minutes 43 Visit Number 3 Number of CREDIT CONTROL MANAGER Visits 1 PT-OP-B Current Condition Start: 04/23/21 12:42 Freq: Status: Active Protocol: Document 04/23/21 12:00 DCW (Rec: 04/24/21 10:10 DCW [id number]) Current Condition History of Current Condition Onset Date Multi-year history Current Complaints Balance, back pain, fatigue, foot drop History of Current Condition Pt is an 80 year old male presenting to skilled PT with multiple complaints. 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 Pt reports that he has to get up early, care for his , do all the house and yard work, and by the end of the day, he is completely wiped out, but needs to just get up and do everything again the next day. Pt reports he has noticed a lot of increased path deviation when walking, as his back and leg pain limit his ability to walk. Pt struggles to get down to his barn, which is 300 feet from his house. Pt also notes he has trouble with his left foot , noticing foot drag/drop frequently, especially when he is tired. Treatment Goals Patient/Caregiver Goals Improvement. PT-OP-C Subjective Start: 04/23/21 12:42 Freq: Status: Active Protocol: Document 05/13/21 14:32 MA (Rec: 05/13/21 15:18 MA [id number]) OP-PT Subjective Patient Comments Patient Comments When asked how pt is feeling he says same as usual, no better, but no worse. PT-OP-D Balance Start: 04/23/21 12:42 Freq: Status: Active Protocol: Document 04/23/21 12:00 DCW (Rec: 04/24/21 09:49 DCW [id number]) Balance Tests Escobar Balance Test Escobar Balance Test Score 40/56 Escobar Impairment Rating 20 to 39% Impaired (Score 34- 44) Escobar Balance Assessment Evaluation Sitting to Standing Ability Independent w/out Hands Unsupported Stance 30 seconds Sitting Unsupported, Feet on Floor Safely- 2 minutes Standing to Sitting Ability Safely, Minimal Hand Use Transfer Ability Safely, Hand Use Unsupported Stance- Eyes Closed Safely, 10 seconds Unsupported Stance- Eyes Open Independent, <30 seconds Reaching Forward Standing Safely, 5 inches Pick- Up Object From Floor Independent/Safe Look Behind Shoulder - Standing Turns Sideways Only Turning 360 Degrees Turns slowly, but safely Unsupported Stance, Alternating Feet on 4 Steps w/Supervision Stair Unsupported Tandem Stance Small Step- 30 seconds Unilateral Leg Stance Lifts Leg/Unable to Hold Total Score Escobar Total Score (out of 56 points) 39 PT-OP-E Functional Tests Start: 04/23/21 12:42 Freq: Status: Active Protocol: Document 04/23/21 12:00 DCW (Rec: 04/24/21 10:10 [facility] [id number]) Functional Tests Timed Up and Go (TUG) Score 10.10 Comments 3-trial average (10.38, 9.88, 10.03) TUG Impairment Rating 1 to <20% Impaired (Score 11) PT-OP-J Posture/Palpation/Skin Start: 04/23/21 12:42 Freq: Status: Active Protocol: Document 04/23/21 12:00 DCW (Rec: 04/24/21 10:10 [facility] [id number]) Posture Evaluation Position Standing Evaluation View Lateral Head/C-Spine Posture Flexed,Forward Head T-Spine Posture Increased Kyphosis Shoulder Posture (L) Forward,(R) Forward Scapula Posture (L) Protracted,(R) Protracted PT-OP-M Strength Start: 04/23/21 12:42 Freq: Status: Active Protocol: Document 04/23/21 12:00 DCW (Rec: 04/24/21 10:10 [facility] [id number]) Hip Strength Hip Manual Muscle Testing Right Flexion (L2) 4- Good- Abduction 4- Good- Adduction 4- Good- External Rotation 4- Good- Internal Rotation 4- Good- Left Flexion (L2) 4- Good- Abduction 4- Good- Adduction 4- Good- External Rotation 4- Good- Internal Rotation 4- Good- Knee Strength Knee Manual Muscle Testing Right Flexion (S2) 4- Good- Extension (L3) 4 Good Left Flexion (S2) 4- Good- Extension (L3) 4 Good Ankle/Foot Strength Ankle and Foot Manual Muscle Testing Right Dorsiflexion (L4) 4- Good- Plantarflexion (S1) 4- Good- Left Dorsiflexion (L4) 3+ Fair+ Plantarflexion (S1) 4- Good- PT-OP-Q Treatments Start: 04/23/21 12:42 Freq: Status: Active Protocol: Document 05/13/21 14:32 MA (Rec: 05/13/21 15:18 MA [id number]) Cardio Equipment Recumbent Elliptical ([employer] Duration (Minutes) 6 Resistance 3 Seat Position 10 Therapeutic Exercises Supine Exercises 3 Supine Exercise Name Active HS stretch Side bilateral Reps/Minutes 5x 5 sec hold 2 Supine Exercise Name LTR Side bilateral Reps/Minutes x10 1 Supine Exercise Name Piriformis stretch - Knee to opposite shoulder Sidelying Exercises 3 Sidelying Exercise Name Reverse Clamshell Side bilateral Reps/Minutes 2x10 2 Sidelying Exercise Name Clamshell Side bilateral Reps/Minutes 2x10 Sitting Exercises 1 Sitting Exercise Name Dorsiflexion Side bilateral Resistance Lv 2 Equipment Used T-band Manual Therapy Treatment Soft Tissue Mobilization HS Mobilization Type Rolling Intensity/Depth Moderate Body Position Supine Glute Med Body Location R Mobilization Type Myofascial Release,Sustained Pressure,Trigger Point Release Intensity/Depth Moderate Body Position Sidelying Paraspinals Body Location Yosvany Paraspinals Mobilization Type Myofascial Release,Sustained Pressure,Trigger Point Release Intensity/Depth Moderate Body Position Sidelying PT-OP-T Assessment and Plan Start: 04/23/21 12:42 Freq: Status: Active Protocol: Document 05/13/21 14:32 MA (Rec: 05/13/21 15:18 MA [id number]) Physical Therapy Assessment Goals Four Impairment Pt has increased left foot drop when fatigued Hospice Volunteer Coordinator Goal (LTG) Pt to complete a 6 MWT with no left foot drop. LTG Duration 07/24/21 Three Impairment Pt experiences fatigue and pain walking more than 300' Hospice Volunteer Coordinator Goal (LTG) Pt to report ability to walk from his house to his barn and back (600' total) without increased back pain or fatigue to allow for easier completion of yard work. LTG Duration 07/24/21 Two Impairment Pt presents as a falls risk, per Escobar score (39/56) Hospice Volunteer Coordinator Goal (LTG) Pt to increase score on Escobar by at leasst 6 points to 45/56 in order to decrease fall risk LTG Duration 07/24/21 One Impairment Pt does not have an appropriate home exercise program Short Term Goal (STG) Pt to be independent and compliant with an appropriate HEP STG Duration 05/23/21 Assessment Summary Assessment Pt has some discomfort in LB when initially moving to supine. He has frequent cramps in L HS throughout session today. 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 He requires tactile cues during clamshell exercise to keep hips neutral. Worked on STM to yosvany paraspinals and HS, and R glute with pt stating, it all hurts, but in a good way like it's helping. Physical Therapy Plan Frequency and Duration Frequency of Treatment 1x/Week Duration of Treatment Three months Plan of Care Start Date 04/23/21 Plan of Care End Date 07/24/21 Therapeutic Interventions Therapeutic Interventions Balance Training,Coordination Training,Home Exercise Program ,Manual Therapy,Neuromuscular Re-education,Patient/Caregiver Education,Self-Care/Home Management,Soft Tissue Mobilization,Therapeutic Activities,Therapeutic Exercises Next Visit Focus/Plan Next Note Type Treatment Note Next Visit Plan Ankle strengthening, balance training, activity tolerance; continue STM to paraspinals and HS
--- NOTE | 2021-06-04 15:17 | PT.OTN ---
Current Diagnoses Other chronic pain (06/04/21) Low back pain (06/04/21) Unspecified abnormalities of gait and mobility (06/04/21) Physical Therapy Treatment Note PT-OP-A Visit Information Start: 04/23/21 12:42 Freq: Status: Active Protocol: Document 06/04/21 14:30 DCW (Rec: 06/04/21 15:17 DCW [id number]) Out-Patient Physical Therapy Visit Information Visit Information Visit Type Treatment Note Visit Start Time 14:30 Visit Stop Time 15:15 Total Visit Minutes 45 Visit Number 4 Number of DINING SERVICES MANAGER Visits 0 Evaluation Information Evaluation Date 04/23/21 PT-OP-B Current Condition Start: 04/23/21 12:42 Freq: Status: Active Protocol: Document 04/23/21 12:00 DCW (Rec: 04/24/21 10:10 DCW [id number]) Current Condition History of Current Condition Onset Date Multi-year history Current Complaints Balance, back pain, fatigue, foot drop History of Current Condition Pt is an 80 year old male presenting to skilled PT with multiple complaints. 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 Pt reports that he has to get up early, care for his , do all the house and yard work, and by the end of the day, he is completely wiped out, but needs to just get up and do everything again the next day. Pt reports he has noticed a lot of increased path deviation when walking, as his back and leg pain limit his ability to walk. Pt struggles to get down to his barn, which is 300 feet from his house. Pt also notes he has trouble with his left foot , noticing foot drag/drop frequently, especially when he is tired. Treatment Goals Patient/Caregiver Goals Improvement. PT-OP-C Subjective Start: 04/23/21 12:42 Freq: Status: Active Protocol: Document 06/04/21 14:30 DCW (Rec: 06/04/21 15:17 DCW [id number]) OP-PT Subjective Patient Comments Patient Comments I've been doing all these stretching religiously, and I can't say it's doing anything. If anything, I'm probably a little worse. PT-OP-D Balance Start: 04/23/21 12:42 Freq: Status: Active Protocol: Document 04/23/21 12:00 DCW (Rec: 04/24/21 09:49 DCW [id number]) Balance Tests Escobar Balance Test Escobar Balance Test Score 40/56 Escobar Impairment Rating 20 to 39% Impaired (Score 34- 44) Escobar Balance Assessment Evaluation Sitting to Standing Ability Independent w/out Hands Unsupported Stance 30 seconds Sitting Unsupported, Feet on Floor Safely- 2 minutes Standing to Sitting Ability Safely, Minimal Hand Use Transfer Ability Safely, Hand Use Unsupported Stance- Eyes Closed Safely, 10 seconds Unsupported Stance- Eyes Open Independent, <30 seconds Reaching Forward Standing Safely, 5 inches Pick- Up Object From Floor Independent/Safe Look Behind Shoulder - Standing Turns Sideways Only Turning 360 Degrees Turns slowly, but safely Unsupported Stance, Alternating Feet on 4 Steps w/Supervision Stair Unsupported Tandem Stance Small Step- 30 seconds Unilateral Leg Stance Lifts Leg/Unable to Hold Total Score Escobar Total Score (out of 56 points) 39 PT-OP-E Functional Tests Start: 04/23/21 12:42 Freq: Status: Active Protocol: Document 04/23/21 12:00 DCW (Rec: 04/24/21 10:10 [facility] [id number]) Functional Tests Timed Up and Go (TUG) Score 10.10 Comments 3-trial average (10.38, 9.88, 10.03) TUG Impairment Rating 1 to <20% Impaired (Score 11) PT-OP-J Posture/Palpation/Skin Start: 04/23/21 12:42 Freq: Status: Active Protocol: Document 04/23/21 12:00 DCW (Rec: 04/24/21 10:10 [facility] [id number]) Posture Evaluation Position Standing Evaluation View Lateral Head/C-Spine Posture Flexed,Forward Head T-Spine Posture Increased Kyphosis Shoulder Posture (L) Forward,(R) Forward Scapula Posture (L) Protracted,(R) Protracted PT-OP-M Strength Start: 04/23/21 12:42 Freq: Status: Active Protocol: Document 04/23/21 12:00 DCW (Rec: 04/24/21 10:10 [facility] [id number]) Hip Strength Hip Manual Muscle Testing Right Flexion (L2) 4- Good- Abduction 4- Good- Adduction 4- Good- External Rotation 4- Good- Internal Rotation 4- Good- Left Flexion (L2) 4- Good- Abduction 4- Good- Adduction 4- Good- External Rotation 4- Good- Internal Rotation 4- Good- Knee Strength Knee Manual Muscle Testing Right Flexion (S2) 4- Good- Extension (L3) 4 Good Left Flexion (S2) 4- Good- Extension (L3) 4 Good Ankle/Foot Strength Ankle and Foot Manual Muscle Testing Right Dorsiflexion (L4) 4- Good- Plantarflexion (S1) 4- Good- Left Dorsiflexion (L4) 3+ Fair+ Plantarflexion (S1) 4- Good- PT-OP-Q Treatments Start: 04/23/21 12:42 Freq: Status: Active Protocol: Document 06/04/21 14:30 DCW (Rec: 06/04/21 15:17 DCW [id number]) Cardio Equipment Recumbent Elliptical ([employer]) Duration (Minutes) 6 Resistance 3 Seat Position 9 Therapeutic Exercises Supine Exercises 3 Supine Exercise Name Active HS stretch Side bilateral Reps/Minutes 5x 5 sec hold 2 Supine Exercise Name LTR Side bilateral Reps/Minutes x10 1 Supine Exercise Name Piriformis stretch - Knee to opposite shoulder Sitting Exercises 1 Sitting Exercise Name Dorsiflexion Side bilateral Resistance Lv 2 Equipment Used T-band Manual Therapy Treatment Soft Tissue Mobilization Glute Med Body Location R Mobilization Type Myofascial Release,Sustained Pressure,Trigger Point Release Intensity/Depth Moderate Body Position Sidelying Paraspinals Body Location Yosvany Paraspinals Mobilization Type Myofascial Release,Sustained Pressure,Trigger Point Release Intensity/Depth Moderate Body Position Sidelying Neuro Re-Education Treatment Balance Activities 3 Details Balance board Comments Fwd/Bkwd, Lateral 2 Details Foam stance Surface Blue foam Equipment // bars PT-OP-T Assessment and Plan Start: 04/23/21 12:42 Freq: Status: Active Protocol: Document 06/04/21 14:30 DCW (Rec: 06/04/21 15:17 DCW [id number]) Physical Therapy Assessment Impairments Impairments Activity Tolerance,Balance, Functional Activities, Functional Mobility,Gait,Pain, Posture,Strength Goals Four Impairment Pt has increased left foot drop when fatigued Hi Ranger Operator Goal (LTG) Pt to complete a 6 MWT with no left foot drop. LTG Duration 07/24/21 Three Impairment Pt experiences fatigue and pain walking more than 300' Hi Ranger Operator Goal (LTG) Pt to report ability to walk from his house to his barn and back (600' total) without increased back pain or fatigue to allow for easier completion of yard work. LTG Duration 07/24/21 Two Impairment Pt presents as a falls risk, per Escobar score (39/56) Alf Goal (LTG) Pt to increase score on Escobar by at leasst 6 points to 45/56 in order to decrease fall risk LTG Duration 07/24/21 One Impairment Pt does not have an appropriate home exercise program Short Term Goal (STG) Pt to be independent and compliant with an appropriate HEP STG Duration 05/23/21 Assessment Summary Assessment Pt recognizes that with caring for his , he is not able to come to PT as frequently as he should, and isn't sure if this will work because of that . Pt wants to discuss with this PCP to determine if there is anything else to do, or if he should still continue to participate in therapy. Physical Therapy Plan Frequency and Duration Frequency of Treatment 1x/Week Duration of Treatment Three months Plan of Care Start Date 04/23/21 Plan of Care End Date 07/24/21 Therapeutic Interventions Therapeutic Interventions Balance Training,Coordination Training,Home Exercise Program ,Manual Therapy,Neuromuscular Re-education,Patient/Caregiver Education,Self-Care/Home Management,Soft Tissue Mobilization,Therapeutic Activities,Therapeutic Exercises Next Visit Focus/Plan Next Note Type Treatment Note Next Visit Plan Ankle strengthening, balance training, activity tolerance; continue STM to paraspinals and HS
--- NOTE | 2021-06-09 17:36 | PT.OPDS ---
Current Diagnoses Other chronic pain (06/04/21) Low back pain (06/04/21) Unspecified abnormalities of gait and mobility (06/04/21) Visit Care Team Role Provider Type Mikhail Madsen MD Attending Provider Physician Primary Care Provider Referring Provider Specialty: Family Practice Address: [address] [place] [address], [facility] Email: [email or web address] Visit Number Visit Number 4 Discharge Summary PT-OP-B Current Condition Start: 04/23/21 12:42 Freq: Status: Active Protocol: Document 04/23/21 12:00 DCW (Rec: 04/24/21 10:10 DCW [id number]) Current Condition History of Current Condition Onset Date Multi-year history Current Complaints Balance, back pain, fatigue, foot drop History of Current Condition Pt is an 80 year old male presenting to skilled PT with multiple complaints. 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 Pt reports that he has to get up early, care for his , do all the house and yard work, and by the end of the day, he is completely wiped out, but needs to just get up and do everything again the next day. Pt reports he has noticed a lot of increased path deviation when walking, as his back and leg pain limit his ability to walk. Pt struggles to get down to his barn, which is 300 feet from his house. Pt also notes he has trouble with his left foot , noticing foot drag/drop frequently, especially when he is tired. Treatment Goals Patient/Caregiver Goals Improvement. PT-OP-C Subjective Start: 04/23/21 12:42 Freq: Status: Active Protocol: Document 06/04/21 14:30 DCW (Rec: 06/04/21 15:17 DCW [id number]) OP-PT Subjective Patient Comments Patient Comments I've been doing all these stretching religiously, and I can't say it's doing anything. If anything, I'm probably a little worse. PT-OP-D Balance Start: 04/23/21 12:42 Freq: Status: Active Protocol: Document 04/23/21 12:00 DCW (Rec: 04/24/21 09:49 [facility] [id number]) Balance Tests Escobar Balance Test Escobar Balance Test Score 40/56 Escobar Impairment Rating 20 to 39% Impaired (Score 34- 44) Escobar Balance Assessment Evaluation Sitting to Standing Ability Independent w/out Hands Unsupported Stance 30 seconds Sitting Unsupported, Feet on Floor Safely- 2 minutes Standing to Sitting Ability Safely, Minimal Hand Use Transfer Ability Safely, Hand Use Unsupported Stance- Eyes Closed Safely, 10 seconds Unsupported Stance- Eyes Open Independent, <30 seconds Reaching Forward Standing Safely, 5 inches Pick- Up Object From Floor Independent/Safe Look Behind Shoulder - Standing Turns Sideways Only Turning 360 Degrees Turns slowly, but safely Unsupported Stance, Alternating Feet on 4 Steps w/Supervision Stair Unsupported Tandem Stance Small Step- 30 seconds Unilateral Leg Stance Lifts Leg/Unable to Hold Total Score Escobar Total Score (out of 56 points) 39 PT-OP-E Functional Tests Start: 04/23/21 12:42 Freq: Status: Active Protocol: Document 04/23/21 12:00 DCW (Rec: 04/24/21 10:10 [facility] [id number]) Functional Tests Timed Up and Go (TUG) Score 10.10 Comments 3-trial average (10.38, 9.88, 10.03) TUG Impairment Rating 1 to <20% Impaired (Score 11) PT-OP-J Posture/Palpation/Skin Start: 04/23/21 12:42 Freq: Status: Active Protocol: Document 04/23/21 12:00 DCW (Rec: 04/24/21 10:10 [facility] [id number]) Posture Evaluation Position Standing Evaluation View Lateral Head/C-Spine Posture Flexed,Forward Head T-Spine Posture Increased Kyphosis Shoulder Posture (L) Forward,(R) Forward Scapula Posture (L) Protracted,(R) Protracted PT-OP-M Strength Start: 04/23/21 12:42 Freq: Status: Active Protocol: Document 04/23/21 12:00 DCW (Rec: 04/24/21 10:10 [facility] [id number]) Hip Strength Hip Manual Muscle Testing Right Flexion (L2) 4- Good- Abduction 4- Good- Adduction 4- Good- External Rotation 4- Good- Internal Rotation 4- Good- Left Flexion (L2) 4- Good- Abduction 4- Good- Adduction 4- Good- External Rotation 4- Good- Internal Rotation 4- Good- Knee Strength Knee Manual Muscle Testing Right Flexion (S2) 4- Good- Extension (L3) 4 Good Left Flexion (S2) 4- Good- Extension (L3) 4 Good Ankle/Foot Strength Ankle and Foot Manual Muscle Testing Right Dorsiflexion (L4) 4- Good- Plantarflexion (S1) 4- Good- Left Dorsiflexion (L4) 3+ Fair+ Plantarflexion (S1) 4- Good- PT-OP-T Assessment and Plan Start: 04/23/21 12:42 Freq: Status: Active Protocol: Document 06/09/21 17:34 DCW (Rec: 06/09/21 17:36 DCW [id number]) Physical Therapy Assessment Assessment Summary Assessment Pt spoke with front office attendant, reports he wants all appointments canceled, will speak to PCP about returning at a later time, when he has more help with his . Pt will be discharged from skilled PT at this time. Physical Therapy Plan Discharge Physical Therapy Discharge Reasons Patient Request Next Visit Focus/Plan Next Note Type Discharge Summary
== END 2021-06-10 08:50 | disposition home or self-care (01) ==
LOC: PHYS 14:30
PROVIDERS: PCP Family Medicine; Referring Provider Family Medicine; Visit Provider Family Medicine
DX: M54.5 Low back pain (principal); G89.29 Other chronic pain; R26.9 Unspecified abnormalities of gait and mobility
CPT/HCPCS: 97110; 97112; 97140; 97162

== ENCOUNTER → 2021-06-17 14:25 | Outpatient (CLI) | payer MEDICARE, OTHER, SELFPAY ==
[2021-06-17 15:48] LABS: Thyroid Stimulating Hormone 0.725 uIU/mL (0.47-4.68)
== END ==
PROVIDERS: PCP Family Medicine; Referring Provider Family Medicine; Visit Provider Family Medicine
DX: E03.9 Hypothyroidism, unspecified (principal)
CPT/HCPCS: 36415; 84443

== ENCOUNTER → 2022-04-30 12:26 | Outpatient (CLI) | payer MEDICARE, OTHER, SELFPAY ==
--- NOTE | 2022-04-30 12:28 | DI.RAD.S_ITS ---
PROCEDURE: XR LUMBAR SPINE 2-3V INDICATIONS: chronic low back pain, years of bad back, may be first xray TECHNIQUE: 3 views of the lumbar spine were acquired. COMPARISON: [facility], , L-SPINE 2-3 VIEWS, 12/22/2010, 13:26. FINDINGS: Bones: 5 [id number] vertebrae are present. Mild dextrorotary scoliosis centered at L3, minimally increased compared to prior. Moderate-severe degenerative changes present at multiple levels with disc height loss and endplate spurring and facet arthropathy, probably mildly worsened since the prior exam. Soft tissues: Overlying bowel gas pattern is normal. IMPRESSION: 1. No acute lumbar spine fracture visualized radiographically. 2. Severe multilevel degenerative changes of the lumbar spine, similar to mildly increased. Dictated by: Mauro Brasher M.D. on 04/30/2022 at 18:20 Approved by: Mauro Brsaher M.D. on 04/30/2022 at 18:25
== END ==
PROVIDERS: PCP Family Medicine; Referring Provider Pediatrics; Visit Provider Pediatrics
DX: M47.816 Spondylosis without myelopathy or radiculopathy, lumbar region (principal); M81.0 Age-related osteoporosis without current pathological fracture; E03.9 Hypothyroidism, unspecified; M54.50 Low back pain, unspecified; R26.9 Unspecified abnormalities of gait and mobility
CPT/HCPCS: 72100

== ENCOUNTER → 2023-03-12 13:32 | Outpatient (CLI) | payer MEDICARE, OTHER, SELFPAY ==
--- NOTE | 2023-03-12 13:33 | DI.RAD.S_ITS ---
PROCEDURE: XR HIP W PEL IF DONE LT 2V INDICATIONS: chronic low back pain and left-sided radiculopathy TECHNIQUE: AP pelvis with lateral view(s) of the left hip(s). COMPARISON: None. FINDINGS: Bones: No fractures or dislocations. Osteoarthritic changes are seen in bilateral hip joints slightly worse on the left side. No evidence of avascular necrosis of femoral head. Pelvic ring appears intact. No suspicious bony lesions. Degenerative disc disease in visualized lower lumbar spine is seen. Soft tissues: The visualized bowel gas pattern is normal. No suspicious soft tissue calcifications. IMPRESSION: 1. Left worse than right bilateral hip joint osteoarthritis. No hip fracture or dislocation. No evidence of avascular necrosis. Dictated by: Juvenal Lane M.D. on 03/12/2023 at 15:51 Approved by: Juvenal Lane M.D. on 03/12/2023 at 16:14
[2023-03-12 14:31] LABS: Add Manual Diff / Slide Review NO; Basophils Absolute Auto 100 /uL (0-100); Basophils Percent Auto 2.1 % (0-2); Eosinophils Absolute Auto 200 /uL (0-450); Eosinophils Percent Auto 3.1 % (2-4); Hematocrit 38.8 % (41-53); Hemoglobin 13.8 g/dL (13.5-17.5); Lymphocytes Absolute Auto 1200 /uL (1100-4500); Lymphocytes Percent Auto 21.5 % (25-40); Mean Corpuscular HGB Conc 35.6 % (30-36); Mean Corpuscular Hemoglobin 32.5 PG (26-34); Mean Corpuscular Volume 91.2 fL (80-100); Monocytes Absolute Auto 600 /uL (0-900); Monocytes Percent Auto 10.8 % (3-14); Neutrophils Absolute Auto 3500 /uL (1500-7000); Neutrophils Percent Auto 62.5 % (50-75); Platelet Count 266 X10^3/uL (150-400); Red Blood Cell Count 4.26 X10^6/uL (4.5-5.9); Red Cell Distribution Width 13.1 % (11.6-14.8); White Blood Cell Count 5.7 X10^3/uL (4.5-11.0)
[2023-03-12 14:53] LABS: Alanine Aminotransferase 19 IU/L (<50); Albumin 4.1 g/dL (3.5-5.0); Albumin Globulin Ratio 1.4 (1.0-2.8); Alkaline Phosphatase 64 U/L (38-126); Aspartate Aminotransferase 45 IU/L (17-59); BUN Creatinine Ratio 26.6 (6-22); Bilirubin Total 0.7 mg/dL (0.2-1.3); Blood Urea Nitrogen 17 mg/dL (9-20); Calcium 9.2 mg/dL (8.4-10.2); Carbon Dioxide 23 mmol/L (22-32); Chloride 100 mmol/L (98-107); Cholesterol 197 mg/dL (140-199); Estimated Glomerular Filt Rate > 60 mL/min (>60); Glucose 93 mg/dL (80-110); HDL Cholesterol 104 mg/dL (40-60); HEMOLYSIS < 15 (0-50); LDL Cholesterol Calculated 82 mg/dL (<100); Potassium 4.5 mmol/L (3.4-5.1); Sodium 131 mmol/L (137-145); Total Protein 7.1 g/dL (6.3-8.2); Triglycerides 54 mg/dL (35-150)
[2023-03-12 15:23] LABS: TSH w/ Reflex to FT4 2.29 uIU/mL (0.47-4.68)
== END ==
PROVIDERS: PCP Family Medicine; Referring Provider Family Medicine; Visit Provider Family Medicine
DX: G62.9 Polyneuropathy, unspecified (principal); E78.2 Mixed hyperlipidemia; E04.1 Nontoxic single thyroid nodule; M25.552 Pain in left hip; M54.50 Low back pain, unspecified; R26.9 Unspecified abnormalities of gait and mobility; M35.3 Polymyalgia rheumatica; E03.9 Hypothyroidism, unspecified
CPT/HCPCS: 36415; 73502; 80053; 80061; 84443; 85025

== ENCOUNTER → 2023-03-17 15:29 | Outpatient (CLI) | payer MEDICARE, OTHER, SELFPAY ==
--- NOTE | 2023-03-17 15:31 | DI.MRI.S_ITS ---
PROCEDURE: MR LUMBAR SPINE WO CON INDICATIONS: chronic low back pain and left-sided radiculopathy TECHNIQUE: Noncontrast sagittal T1 spin echo and T2 fast echo, sagittal STIR, and T2 fast spin echo through the lumbar spine. In cases with scoliosis, additional coronal T2 fast spin echo may be performed. COMPARISON: None. FINDINGS: Image quality: Excellent. Alignment and Curvature: Convex right scoliosis, Paul angle of 25?. Grade 1 anterolisthesis of L5 on S1, likely due to facet arthrosis. Bone Marrow: Marrow is of normal overall signal. No acute vertebral body compression fractures. Spinal Cord: Conus medullaris terminates at the L2 level. Visualized cord demonstrates normal signal and size. Paraspinous Soft Tissues: No paravertebral masses. T12-L1: Moderate disc height loss. L1-L2: Severe disc height loss. L2-L3: Severe disc height loss. Moderate left neural foraminal narrowing. L3-L4: Severe disc height loss. Moderate left neural foraminal narrowing. Severe right neural foraminal narrowing. L4-L5: Severe disc height loss. Disc osteophyte complex and mild ligamentum flavum hypertrophy is, left greater than right. Moderate right and mild left neural foraminal narrowing. L5-S1: Moderate disc height loss. Bilateral facet hypertrophy. Disc osteophyte complex. Moderate to severe right and mild left neural foraminal narrowing. IMPRESSION: Multilevel degenerative disc disease and facet arthrosis. While there is no significant spinal canal narrowing, there is multilevel neural foraminal narrowing, as listed above. Dictated by: Nasim Castro M.D. on 03/17/2023 at 16:46 Approved by: Nasim Castro M.D. on 03/17/2023 at 16:52
== END ==
PROVIDERS: PCP Family Medicine; Referring Provider Family Medicine; Visit Provider Family Medicine
DX: M51.16 Intervertebral disc disorders with radiculopathy, lumbar region (principal); M47.26 Other spondylosis with radiculopathy, lumbar region; M54.50 Low back pain, unspecified; M25.552 Pain in left hip; R26.9 Unspecified abnormalities of gait and mobility; G62.9 Polyneuropathy, unspecified
CPT/HCPCS: 72148

== ENCOUNTER → 2023-05-06 15:05 | Outpatient (CLI) | payer MEDICARE, OTHER, SELFPAY ==
[2023-05-06 17:02] LABS: Add Manual Diff / Slide Review NO; Basophils Absolute Auto 100 /uL (0-100); Basophils Percent Auto 1.2 % (0-2); Eosinophils Absolute Auto 200 /uL (0-450); Eosinophils Percent Auto 2.5 % (2-4); Hematocrit 39.8 % (41-53); Lymphocytes Absolute Auto 1500 /uL (1100-4500); Lymphocytes Percent Auto 19.4 % (25-40); Mean Corpuscular HGB Conc 35.1 % (30-36); Mean Corpuscular Hemoglobin 31.7 PG (26-34); Mean Corpuscular Volume 90.5 fL (80-100); Monocytes Absolute Auto 600 /uL (0-900); Monocytes Percent Auto 8.2 % (3-14); Neutrophils Absolute Auto 5400 /uL (1500-7000); Neutrophils Percent Auto 68.7 % (50-75); Platelet Count 270 X10^3/uL (150-400); Red Cell Distribution Width 12.8 % (11.6-14.8); White Blood Cell Count 7.8 X10^3/uL (4.5-11.0)
[2023-05-06 17:39] LABS: Blood Urea Nitrogen 17 mg/dL (9-20); Calcium 9.2 mg/dL (8.4-10.2); Carbon Dioxide 27 mmol/L (22-32); Chloride 99 mmol/L (98-107); Cholesterol 214 mg/dL (140-199); Estimated Glomerular Filt Rate > 60 mL/min (>60); Glucose 92 mg/dL (80-110); HDL Cholesterol 90 mg/dL (40-60); HEMOLYSIS < 15 (0-50); LDL Cholesterol Calculated 111 mg/dL (<100); Potassium 4.4 mmol/L (3.4-5.1); Sodium 133 mmol/L (137-145); Triglycerides 63 mg/dL (35-150)
== END ==
PROVIDERS: PCP Family Medicine; Referring Provider Internal Medicine Cardiovascular Disease; Visit Provider Internal Medicine Cardiovascular Disease
DX: I10 Essential (primary) hypertension (principal)
CPT/HCPCS: 36415; 80048; 80061; 85025

== ENCOUNTER → 2023-12-03 12:07 | Outpatient (CLI) | payer MEDICARE, OTHER, SELFPAY ==
--- NOTE | 2023-12-03 12:08 | DI.RAD.S_ITS ---
PROCEDURE: XR CHEST 2V INDICATIONS: chronic cough TECHNIQUE: 2 views of the chest were acquired. COMPARISON: [facility], [place], XR CHEST 2V, 12/08/2019, 15:42. [facility], [place], CHEST 1 VIEW, 06/29/2016, 17:01. FINDINGS: Surgical changes and devices: ekg leads project over the chest Lungs and pleura: Lungs are clear. No pleural effusions or pneumothorax. Mediastinum: Mediastinal contours are normal for age. Heart size is normal. Bones and chest wall: note is made of scoliosis IMPRESSION: No acute cardiopulmonary abnormality is seen. Dictated by: Michael Moore M.D. on 12/03/2023 at 14:41 Approved by: Michael Moore M.D. on 12/03/2023 at 14:47
[2023-12-03 13:29] LABS: Appearance Urine UA CLEAR; Bilirubin Urine UA NEGATIVE (NEGATIVE); Color Urine UA YELLOW; Glucose Urine UA NEGATIVE (Negative); Ketones Urine UA NEGATIVE (NEGATIVE); Leukocyte Esterase Urine UA NEGATIVE (NEGATIVE); Nitrite Urine UA NEGATIVE (Negative); Occult Blood Urine UA NEGATIVE (Negative); Protein Urine UA NEGATIVE (Negative); Specific Gravity Urine UA <=1.005 (1.000-1.035); Urobilinogen Urine UA 0.2 E.U./dL (0.2); pH Urine UA 6.5 (4.5-8.0)
[2023-12-03 13:31] LABS: Alanine Aminotransferase 28 IU/L (<50); Albumin 4.1 g/dL (3.5-5.0); Albumin Globulin Ratio 1.3 (1.0-2.8); Alkaline Phosphatase 60 U/L (38-126); Aspartate Aminotransferase 53 IU/L (17-59); BUN Creatinine Ratio 13.3 (6-22); Bilirubin Total 0.8 mg/dL (0.2-1.3); Blood Urea Nitrogen 8 mg/dL (9-20); Calcium 9.6 mg/dL (8.4-10.2); Carbon Dioxide 27 mmol/L (22-32); Chloride 100 mmol/L (98-107); Estimated Glomerular Filt Rate > 60 mL/min (>60); Globulin 3.1 g/dL (1.7-4.1); Glucose 87 mg/dL (80-110); HEMOLYSIS < 15 (0-50); Lactate Dehydrogenase 202 U/L (120-246); Potassium 4.5 mmol/L (3.4-5.1); Sodium 133 mmol/L (137-145); Total Protein 7.2 g/dL (6.3-8.2)
[2023-12-03 13:34] LABS: Add Manual Diff / Slide Review NO; Basophils Absolute Auto 100 /uL (0-100); Basophils Percent Auto 1.5 % (0-2); Eosinophils Absolute Auto 200 /uL (0-450); Eosinophils Percent Auto 3.2 % (2-4); Hemoglobin 14.4 g/dL (13.5-17.5); Lymphocytes Absolute Auto 1100 /uL (1100-4500); Lymphocytes Percent Auto 16.7 % (25-40); Mean Corpuscular Hemoglobin 31.7 PG (26-34); Mean Corpuscular Volume 90.6 fL (80-100); Monocytes Absolute Auto 700 /uL (0-900); Monocytes Percent Auto 11.1 % (3-14); Neutrophils Absolute Auto 4300 /uL (1500-7000); Neutrophils Percent Auto 67.5 % (50-75); Platelet Count 319 X10^3/uL (150-400); Red Blood Cell Count 4.53 X10^6/uL (4.5-5.9); Red Cell Distribution Width 13.6 % (11.6-14.8); White Blood Cell Count 6.3 X10^3/uL (4.5-11.0)
[2023-12-03 13:42] LABS: Bacteria Urine None Seen; Culture Indicated Urine Cult Not Indicated; RBC Urine None Seen (0-5/HPF); Squamous Epithelial Cell Urine None Seen (0-5/HPF); Urine Volume 10mL (spun); WBC Urine None Seen (0-5/HPF)
[2023-12-03 13:47] LABS: Procalcitonin < 0.03 ng/mL (<0.5)
[2023-12-03 14:00] LABS: TSH w/ Reflex to FT4 2.83 uIU/mL (0.47-4.68)
== END ==
PROVIDERS: PCP Family Medicine; Referring Provider Family Medicine; Visit Provider Family Medicine
DX: R53.82 Chronic fatigue, unspecified (principal); R05.3 Chronic cough; U09.9 Post COVID-19 condition, unspecified; I10 Essential (primary) hypertension; R61 Generalized hyperhidrosis; M54.50 Low back pain, unspecified
CPT/HCPCS: 36415; 71046; 80053; 81001; 83615; 84145; 84443; 85025

== ENCOUNTER → 2023-12-27 13:18 | Outpatient (CLI) | payer MEDICARE, OTHER, SELFPAY ==
--- NOTE | 2023-12-27 13:20 | DI.RAD.S_ITS ---
PROCEDURE: XR LUMBAR SPINE MIN 4V INDICATIONS: BACK PAIN TECHNIQUE: 5 views of the lumbar spine were acquired, including bilateral oblique views. COMPARISON: MR, MR LUMBAR SPINE WO CON, 03/17/2023, 15:51. [facility], [place], XR LUMBAR SPINE 2-3V, 04/30/2022, 12:21. FINDINGS: Bones: 5 nonrib-bearing vertebrae are present. There is rightward scoliotic curvature. Multilevel degenerative changes are mildly progressive, with disc and foraminal most severe at L2-3, L4-5. No vertebral body compression fractures. No suspicious bony lesions. Soft tissues: Overlying bowel gas pattern is normal. No suspicious soft tissue calcifications. Oblique images: No pars defects. IMPRESSION: Multilevel foraminal changes as above. Overall appearance demonstrate minimal interval progression. Dictated by: Hailey Snider M.D. on 12/27/2023 at 15:04 Approved by: Hailey Snider M.D. on 12/27/2023 at 15:06
== END ==
PROVIDERS: PCP Family Medicine; Referring Provider Anesthesiology; Visit Provider Anesthesiology
DX: M47.26 Other spondylosis with radiculopathy, lumbar region (principal); M41.26 Other idiopathic scoliosis, lumbar region; M51.16 Intervertebral disc disorders with radiculopathy, lumbar region; G89.29 Other chronic pain
CPT/HCPCS: 72110; 99214

== ENCOUNTER → 2024-06-08 11:27 | Outpatient (CLI) | payer MEDICARE, OTHER, SELFPAY ==
[2024-06-08 12:27] LABS: Add Manual Diff / Slide Review NO; Basophils Absolute Auto 100 /uL (0-100); Basophils Percent Auto 1.5 % (0-2); Eosinophils Absolute Auto 300 /uL (0-450); Eosinophils Percent Auto 5.5 % (2-4); Hematocrit 40.1 % (41-53); Hemoglobin 13.9 g/dL (13.5-17.5); Lymphocytes Absolute Auto 1300 /uL (1100-4500); Lymphocytes Percent Auto 21.2 % (25-40); Mean Corpuscular HGB Conc 34.6 % (30-36); Mean Corpuscular Hemoglobin 32.1 PG (26-34); Mean Corpuscular Volume 92.7 fL (80-100); Monocytes Absolute Auto 700 /uL (0-900); Monocytes Percent Auto 11.7 % (3-14); Neutrophils Absolute Auto 3700 /uL (1500-7000); Neutrophils Percent Auto 60.1 % (50-75); Platelet Count 312 X10^3/uL (150-400); Red Blood Cell Count 4.33 X10^6/uL (4.5-5.9); Red Cell Distribution Width 13.7 % (11.6-14.8); White Blood Cell Count 6.1 X10^3/uL (4.5-11.0)
[2024-06-08 12:28] LABS: BUN Creatinine Ratio 13.6 (6-22); Blood Urea Nitrogen 8 mg/dL (9-20); Calcium 8.6 mg/dL (8.4-10.2); Carbon Dioxide 27 mmol/L (22-32); Chloride 101 mmol/L (98-107); Cholesterol 188 mg/dL (140-199); Estimated Glomerular Filt Rate > 60 mL/min (>60); Glucose 93 mg/dL (80-110); HDL Cholesterol 91 mg/dL (40-60); HEMOLYSIS < 15 (0-50); LDL Cholesterol Calculated 89 mg/dL (<100); Potassium 4.4 mmol/L (3.4-5.1); Sodium 132 mmol/L (137-145); Triglycerides 41 mg/dL (35-150)
== END ==
PROVIDERS: PCP Family Medicine; Referring Provider Internal Medicine Cardiovascular Disease; Visit Provider Internal Medicine Cardiovascular Disease
DX: I25.10 Atherosclerotic heart disease of native coronary artery without angina pectoris (principal)
CPT/HCPCS: 36415; 80048; 80061; 85025

== ENCOUNTER → 2024-07-18 15:50 | Outpatient (CLI) | payer MEDICARE, OTHER, SELFPAY ==
[2024-07-18 16:54] LABS: Add Manual Diff / Slide Review NO; Basophils Absolute Auto 100 /uL (0-100); Basophils Percent Auto 1.4 % (0-2); Eosinophils Absolute Auto 300 /uL (0-450); Eosinophils Percent Auto 3.7 % (2-4); Hemoglobin 14.9 g/dL (13.5-17.5); Lymphocytes Absolute Auto 1100 /uL (1100-4500); Lymphocytes Percent Auto 15.7 % (25-40); Mean Corpuscular HGB Conc 34.6 % (30-36); Mean Corpuscular Hemoglobin 32.1 PG (26-34); Mean Corpuscular Volume 92.8 fL (80-100); Monocytes Absolute Auto 700 /uL (0-900); Monocytes Percent Auto 9.6 % (3-14); Neutrophils Absolute Auto 4900 /uL (1500-7000); Neutrophils Percent Auto 69.6 % (50-75); Platelet Count 345 X10^3/uL (150-400); Red Blood Cell Count 4.64 X10^6/uL (4.5-5.9); Red Cell Distribution Width 13.5 % (11.6-14.8); White Blood Cell Count 7.1 X10^3/uL (4.5-11.0)
[2024-07-18 17:10] LABS: HEMOLYSIS < 15 (0-50)
[2024-07-18 17:19] LABS: Alanine Aminotransferase 20 IU/L (<50); Albumin 4.5 g/dL (3.5-5.0); Albumin Globulin Ratio 1.3 (1.0-2.8); Alkaline Phosphatase 66 U/L (38-126); Aspartate Aminotransferase 52 IU/L (17-59); BUN Creatinine Ratio 16.9 (6-22); Bilirubin Total 0.9 mg/dL (0.2-1.3); Blood Urea Nitrogen 10 mg/dL (9-20); Calcium 9.5 mg/dL (8.4-10.2); Carbon Dioxide 27 mmol/L (22-32); Chloride 97 mmol/L (98-107); Estimated Glomerular Filt Rate > 60 mL/min (>60); Globulin 3.4 g/dL (1.7-4.1); Glucose 93 mg/dL (80-110); Potassium 4.3 mmol/L (3.4-5.1); Sodium 131 mmol/L (137-145); Total Protein 7.9 g/dL (6.3-8.2)
[2024-07-18 17:48] LABS: TSH w/ Reflex to FT4 3.62 uIU/mL (0.47-4.68)
[2024-07-18 20:03] LABS: Prostate Specific Antigen Scrn 0.701 ng/mL (0.1-4.0)
== END ==
PROVIDERS: PCP Family Medicine; Referring Provider Family Medicine; Visit Provider Family Medicine
DX: R53.82 Chronic fatigue, unspecified (principal); Z12.5 Encounter for screening for malignant neoplasm of prostate; E78.5 Hyperlipidemia, unspecified; M51.36 Other intervertebral disc degeneration, lumbar region; M47.816 Spondylosis without myelopathy or radiculopathy, lumbar region; R26.9 Unspecified abnormalities of gait and mobility; E03.9 Hypothyroidism, unspecified; I10 Essential (primary) hypertension
CPT/HCPCS: 36415; 80053; 84402; 84403; 84443; 85025; G0103

== ENCOUNTER → 2024-11-09 16:15 | Outpatient (CLI) | payer MEDICARE, OTHER, SELFPAY ==
--- NOTE | 2024-11-09 16:16 | DI.RAD.S_ITS ---
Deo and rosie since the past ROCEDURE: XR CHEST 2V INDICATIONS: cough x 1+ yr TECHNIQUE: 2 views of the chest were acquired. COMPARISON: [facility], , XR CHEST 2V, 12/03/2023, 12:20. FINDINGS: Heart, mediastinum and pulmonary vascular: Heart is normal in size and configuration. Mediastinum is unremarkable. Pulmonary vascular is normal. Lungs: Clear Pleural spaces: Normal-no effusions or pneumothorax. Bones and soft tissues: Moderate degenerative disc disease seen throughout the thoracic spine. IMPRESSION: No cardiopulmonary disease. Dictated by: Uriah Richter M.D. on 11/10/2024 at 13:33 Approved by: Uriah Richter M.D. on 11/10/2024 at 13:34
== END ==
PROVIDERS: PCP Family Medicine; Referring Provider Physician Assistant; Visit Provider Physician Assistant
DX: M51.34 Other intervertebral disc degeneration, thoracic region (principal); R05.3 Chronic cough
CPT/HCPCS: 71046

== ENCOUNTER → 2024-11-16 15:15 | Outpatient (CLI) | payer MEDICARE, OTHER, SELFPAY ==
[2024-11-16 16:55] LABS: Influenza A - CEPHEID Flu A NEGATIVE (NEGATIVE); Influenza B - CEPHEID Flu B NEGATIVE (NEGATIVE); Respiratory Syncytial Virus Negative (Negative)
[2024-11-16 17:02] LABS: COVID-19 CEPHEID 4-PLEX PCR Negative (Negative)
== END ==
PROVIDERS: PCP Family Medicine; Referring Provider Physician Assistant; Visit Provider Physician Assistant
DX: R05.1 Acute cough (principal)
CPT/HCPCS: 0241U

== ENCOUNTER → 2024-11-21 13:38 | Outpatient (CLI) | payer MEDICARE, OTHER, SELFPAY ==
[2024-11-21 15:02] LABS: Estimated Glomerular Filt Rate > 60 mL/min (>60)
--- NOTE | 2024-11-21 15:05 | DI.CT.S_ITS ---
PROCEDURE: CT CHEST W CON INDICATIONS: chronic cough x 1 yr, recent hemoptysis TECHNIQUE: After the administration of intravenous contrast, 5 mm thick sections acquired from the pulmonary apices to the posterior costophrenic angles. 1 mm axial lung, 5 mm thick coronal and sagittal reformats and 7 mm axial MIP were acquired. For radiation dose reduction, the following was used: automated exposure control, adjustment of mA and/or kV according to patient size. COMPARISON: None. FINDINGS: Image quality: Diagnostic Lungs and pleura: Basal atelectasis/scarring. Mild lower lung bronchial wall thickening. There are no reticular changes. No dense airspace disease. No pleural effusions. There are probable small fissural lymph nodes along the right. Micro nodules/granulomas are seen, for example in the right image . Follow-up is optional if the patient is considered high risk for pulmonary malignancy in 1 year. Mediastinum, heart, and esophagus: Coronary calcifications. No hiatal hernia identified on this CT. No pathologic lymphadenopathy by size criteria. Overall heart size within normal limits Chest wall and thyroid: Mildly heterogeneous thyroid, nonspecific Upper abdomen: Unremarkable Bones: There are degenerative changes. IMPRESSION: Mild atelectasis at the right lung base. Mild bronchial wall thickening in the lower lungs, possibly bronchitis. No acute thoracic abnormality. No reticulation to suggest parenchymal fibrosis. Other findings above. Dictated by: James Luther M.D. on 11/22/2024 at 11:56 Approved by: James Luther M.D. on 11/22/2024 at 12:00
== END ==
PROVIDERS: Radiology Diagnostic Radiology; PCP Family Medicine; Referring Provider Physician Assistant; Visit Provider Physician Assistant
DX: J18.9 Pneumonia, unspecified organism (principal); J98.11 Atelectasis
CPT/HCPCS: 36415; 71260; 82565; Q9967

== ENCOUNTER 2025-03-01 13:37 | Emergency (ER) | payer MEDICARE, OTHER, SELFPAY ==
[2025-03-01 14:06] VITALS: BP 160/73; PULSE 77; RESP 16; TEMP 36.6; O2SAT 99; BMI 24.3
--- NOTE | 2025-03-01 14:40 | PC.NURSE ---
Patient left a stool sample. I explained that it does not show blood in the stool but that we do not have the results of the Gi panel yet. Patient states [place] ferry and doesn't want to wait for results. I told him if the results of the stool sample are positive for anything then he will receive a call back and that he may need to seek further treatment. I also explained that he may need to switch antibiotics for the cat bite rather than stop it altogether. He reports his PCP is out of the office and that he does not want to stay to be seen by an ER doctor. I advised him that if the cat scratch worsens and becomes more inflamed, then he needs to seek medical treatment to switch antibiotics. Patient verbalizes understanding. Seen exiting the ER with his ride.
[2025-03-01 16:23] LABS: Adenovirus F 40/41 Not Detected (Not Detect); Astrovirus Not Detected (Not Detect); Campylobacter Not Detected (Not Detect); Clostridium difficile toxin AB Not Detected (Not Detect); Cryptosporidium Not Detected (Not Detect); Cyclospora cayetanensis Not Detected (Not Detect); Entamoeba histolytica Not Detected (Not Detect); Enteroaggregative E.coli Not Detected (Not Detect); Enteropathogenic E.coli Not Detected (Not Detect); Enterotoxigenic E.coli It/st Detected (Not Detect); Giardia lamblia Not Detected (Not Detect); Norovirus GI/GII Not Detected (Not Detect); Plesiomonsa shigelloides Not Detected (Not Detect); Rotavirus A Not Detected (Not Detect); Salmonella Not Detected (Not Detect); Sapovirus Not Detected (Not Detect); Shiga-like toxin-prod E.coli Not Detected (Not Detect); Shigella/Enteroinvasive E.coli Not Detected (Not Detect); Vibrio Not Detected (Not Detect); Vibrio cholerae Not Detected (Not Detect); Yersinia enterocolitica Not Detected (Not Detect)
--- NOTE | 2025-03-01 18:13 | ED.NAVMDI ---
HPI - Nausea/Vomiting/Diarrhea General Chief complaint: Nausea/Vomiting/Diarrhea Stated complaint: Extreme diarrhea Source: patient Mode of arrival: Ambulatory Related Data Home Medications Medication Instructions Recorded Confirmed CA PANTOTHENATE/FOLIC ACID/VIT 1 tab PO Q DAY ##0 08/06/11 11/16/24 (MULTIVITAMIN) aspirin 81 mg tablet,delayed 81 mg PO DAILY 07/08/18 11/16/24 release valsartan 160 mg tablet (Diovan) 160 mg PO BID 07/08/18 11/16/24 amlodipine 5 mg tablet 5 mg PO DAILY 12/08/19 11/16/24 Previous Rx's Medication Instructions Recorded epinephrine 0.3 mg/0.3 mL 0.3 ml IM ONCE #1 ea 07/05/19 injection, auto-injector (EpiPen 2-Rocael) Disabled Parking Permit #1 ea 07/18/24 celecoxib 200 mg capsule (Celebrex) 200 mg PO DAILY #30 caps 10/11/24 benzonatate 200 mg capsule 200 mg PO TID #30 caps 11/09/24 fluticasone propionate 110 1 puff inhalation BID #12 grams 11/09/24 mcg/actuation HFA aerosol inhaler azithromycin 250 mg tablet See Rx Instructions PO .COMPLEX #6 11/16/24 tabs benzonatate 200 mg capsule 200 mg PO TID #30 caps 11/16/24 levothyroxine 112 mcg tablet See Rx Instructions .Route 12/11/24 .COMPLEX #90 tabs amoxicillin 875 mg-potassium 1 tab PO BID #14 tabs 02/26/25 clavulanate 125 mg tablet Allergies Allergy/AdvReac Type Severity Reaction Status Date / Time venom-honey bee Allergy Severe THROAT Verified 03/01/25 14:16 [bee venom (honey bee)] SWELLING, LIGHTHEADEDNESS clopidogrel [CLOPIDOGREL] AdvReac Intermediate fatigue/liz Verified 03/01/25 14:16 h ezetimibe [From Zetia] AdvReac Intermediate myalgia/fat Verified 03/01/25 14:16 igue rosuvastatin AdvReac Mild MUSCLE Verified 03/01/25 14:16 PAIN/STIFFNESS Patient History Medical History Abnormal gait Acquired hypothyroidism Atherosclerosis of right carotid artery Chronic back pain (1989) Chronic fatigue Chronic low back pain without sciatica (09/13/14) Coronary artery disease Foot pain (2014) Hearing loss (1994) Hyperlipidemia Hypertension Low back pain Lumbar degenerative disc disease Lumbar facet arthropathy Lumbar radiculopathy Lumbar spondylosis Neuropathy Osteoporosis (2015) Polymyalgia rheumatica (02/23/14) Rheumatic fever (1946) Scoliosis Thyroid nodule (1977) Unilateral inguinal hernia (08/06/11) Urinary incontinence (2015) Surgical History Anesthesia History of heart artery stent (2007) History of left inguinal hernia repair Status post bilateral hernia repair (1994) Family History Brother Lung cancer Mother Family history of CHF (congestive heart failure) Stroke Father No problems noted. Brother Alzheimer's disease Grandfather No problems noted. Grandmother No problems noted. Grandfather Ruptured appendix Grandmother No problems noted. Sister No problems noted. 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 Smoking Status: Current every day smoker Tobacco: How many years used: 18 Smokeless tobacco user: other (Cigarettes) quit status: quit date established (1973) second hand exposure: No alcohol intake: current (Occasionally) substance use type: does not use Smoking Status: Current every day smoker Exam Initial Vital Signs Initial Vital Signs: Vital Signs Temperature 98 F 03/01/25 14:06 Pulse Rate 77 03/01/25 14:06 Respiratory Rate 16 03/01/25 14:06 Blood Pressure 160/73 H 03/01/25 14:06 Pulse Oximetry 99 03/01/25 14:06 Oxygen Delivery Method Room Air 03/01/25 14:06 Course Orders Ordered: ED Orders 03/01/25 14:30 GI Panel (Film Array) Stat Vital Signs Vital signs: Vital Signs - 8 hr 03/01/25 14:06 Temperature 98 F Pulse Rate 77 Respiratory Rate 16 Blood Pressure 160/73 H Pulse Oximetry 99 Oxygen Delivery Method Room Air MDM - Nausea/Vomiting/Diarrhea Differential Diagnosis Discussed with:: Provider did not see patient because left without being seen after triage. Lab Data Labs: Lab Results 03/01/25 Range/Units 14:30 Stl C. cayetanensis PCR Not detected (Not Detect) Stool Rotavirus (PCR) Not detected (Not Detect) Stool Adenovirus (PCR) Not detected (Not Detect) Stool Astrovirus (PCR) Not detected (Not Detect) Stool Cryptosporidium PCR Not detected (Not Detect) Stl E.coli Shiga Tox PCR Not detected (Not Detect) St Sh/Enteroin Ecoli PCR Not detected (Not Detect) Stl Enterotoxigenic E PCR Detected (Not Detect) Stool EPEC (PCR) Not detected (Not Detect) Stl E. histolytica PCR Not detected (Not Detect) Stool Giardia Lamblia PCR Not detected (Not Detect) Stool Sapovirus (PCR) Not detected (Not Detect) Stl P. shigelloides PCR Not detected (Not Detect) St Y.enterocolitica PCR Not detected (Not Detect) Stool Vibrio (PCR) Not detected (Not Detect) Stl Vibrio cholerae PCR Not detected (Not Detect) Stl Enteroaggr Ecoli PCR Not detected (Not Detect) Stl Norovirus GI/GII PCR Not detected (Not Detect) Campylobacter (PCR) Not detected (Not Detect) C. difficile Tox (PCR) Not detected (Not Detect) Salmonella (PCR) Not detected (Not Detect) Point of Care Testing Stool Occult Blood Negative Discharge Plan Departure Patient Disposition: Left Without Being Seen Clinical Impression: Patient left after triage Prescriptions: No Action CA PANTOTHENATE/FOLIC ACID/VIT (MULTIVITAMIN) 1 tab PO Q DAY Qty: 0 epinephrine [EpiPen 2-Rocael] 0.3 mg/0.3 mL auto-injector 0.3 ml IM ONCE Qty: 1 1RF Rx Instructions: as a single dose; may repeat once levothyroxine 112 mcg tablet See Rx Instructions .ROUTE .COMPLEX Qty: 90 2RF Dose Instruction: TAKE 1 TABLET BY MOUTH DAILY Rx Instructions: TAKE 1 TABLET BY MOUTH DAILY valsartan [Diovan] 160 mg tablet 160 mg PO BID aspirin 81 mg tablet,delayed release (DR/EC) 81 mg PO DAILY amlodipine 5 mg tablet 5 mg PO DAILY benzonatate 200 mg capsule 200 mg PO TID Qty: 30 0RF fluticasone propionate 110 mcg/actuation HFA aerosol inhaler 1 puff inhalation BID Qty: 12 0RF amoxicillin-pot clavulanate 875-125 mg tablet 1 tab PO BID Qty: 14 0RF (DME) Disabled Parking Permit See Rx Instructions .ROUTE .MEDSUPPLY Qty: 1 0RF Rx Instructions: I find this patient to be medically disabled and qualified for Disabled Parking as indicated and signed on the accompanying Disabled Parking Application for Individuals. azithromycin 250 mg tablet See Rx Instructions PO .COMPLEX Qty: 6 0RF Rx Instructions: For 250 mg dose pack: take 500 mg today (day 1), then 250 mg for 4 days (days 2-5) PO benzonatate 200 mg capsule 200 mg PO TID Qty: 30 0RF celecoxib [Celebrex] 200 mg capsule 200 mg PO DAILY Qty: 30 2RF
--- NOTE | 2025-03-01 19:05 | PC.NURSE ---
Spoke to Dr Finn regarding pt's positive stool sample. Advised to call pt. Contact made with pt and advised that at this time no abx are needed. treatment is fluids with electrolytes, rest, and adequuate hydration. Advised to f/u with Dr Madsen if sx persist for the next 3-5 days for potential antibiotics. Pt agreeable.
== END 2025-03-01 14:45 | disposition left against medical advice (07) ==
PROVIDERS: Emergency Provider Emergency Medicine; PCP Family Medicine
DX: R19.7 Diarrhea, unspecified (principal)
CPT/HCPCS: 82272; 87507; 99282

== ENCOUNTER → 2025-08-15 09:50 | Outpatient (CLI) | payer MEDICARE, OTHER, SELFPAY ==
[2025-08-15 11:15] LABS: Add Manual Diff / Slide Review NO; Hematocrit 41.3 % (41-53); Hemoglobin 14.5 g/dL (13.5-17.5); Lymphocytes Absolute Auto 1600 /uL (1100-4500); Mean Corpuscular HGB Conc 35.1 % (30-36); Mean Corpuscular Hemoglobin 32.0 PG (26-34); Mean Corpuscular Volume 91.1 fL (80-100); Platelet Count 291 X10^3/uL (150-400)
[2025-08-15 11:59] LABS: HEMOLYSIS < 15 (0-50); Iron 107 ug/dL (49-181)
[2025-08-15 12:00] LABS: Alanine Aminotransferase 18 IU/L (<50); Albumin 4.4 g/dL (3.5-5.0); Albumin Globulin Ratio 1.5 (1.0-2.8); Alkaline Phosphatase 65 U/L (38-126); Blood Urea Nitrogen 12 mg/dL (9-20); Calcium 9.3 mg/dL (8.4-10.2); Carbon Dioxide 27 mmol/L (22-32); Chloride 98 mmol/L (98-107); Estimated Glomerular Filt Rate > 60 mL/min (>60); Globulin 3.0 g/dL (1.7-4.1); Glucose 89 mg/dL (70-99); HEMOLYSIS < 15 (0-50); Potassium 4.6 mmol/L (3.4-5.1); Sodium 134 mmol/L (137-145); Total Protein 7.4 g/dL (6.3-8.2)
[2025-08-15 12:00] LABS: Cholesterol 209 mg/dL (140-199); HDL Cholesterol 110 mg/dL (40-60); Triglycerides 77 mg/dL (35-150)
[2025-08-15 12:09] LABS: Percent Iron Saturation 38 % (20-50); Total Iron Binding Capacity 279 ug/dL (261-462); Transferrin 251 mg/dL (206-381)
[2025-08-15 12:34] LABS: TSH w/ Reflex to FT4 4.42 uIU/mL (0.47-4.68)
== END ==
PROVIDERS: PCP Family Medicine; Referring Provider Internal Medicine Cardiovascular Disease; Visit Provider Internal Medicine Cardiovascular Disease
DX: I25.10 Atherosclerotic heart disease of native coronary artery without angina pectoris (principal); Z12.5 Encounter for screening for malignant neoplasm of prostate; R53.82 Chronic fatigue, unspecified; E78.2 Mixed hyperlipidemia; I10 Essential (primary) hypertension; E03.9 Hypothyroidism, unspecified
CPT/HCPCS: 36415; 80053; 80061; 83540; 83550; 84443; 85025; G0103

== ENCOUNTER → 2025-08-30 13:28 | Outpatient (CLI) | payer MEDICARE, OTHER, SELFPAY ==
--- NOTE | 2025-08-30 13:30 | DI.ECHO.S_ITS ---
[facility] : : [id number] : : [place] : : [id number] : : Phone: [phone] Echocardiogram Report + + :Name: CLYDE MELENDEZ Study Date: 08/30/2025 Height: 67 in : :[facility] ReadingLocation: Weight: 155 lb : : Gender: Male BSA: 1.8 m2 : :: 1940 Age: 85 yrs BP: 152/75 mmHg: :Reason For Study: MURMUR : :Ordering Physician: JOEL, : :CHRIS Performed By: Krishna Mays : :Referring: CHRIS MALDONADO : + + Interpretation Summary The left ventricle is normal in size. The left ventricular ejection fraction is normal. The ejection fraction is estimated to be 60-65%. The right ventricle is normal in size and function. The aortic valve is trileaflet. The aortic valve is moderately calcified. There is mildly reduced leaflet mobility. The peak aortic velocity is 2.16 m/sec. The aortic valve mean gradient is 10.9 mmHg. The calculated aortic valve area is 1.8 cm2. There is mild aortic stenosis. There is mild to moderate aortic regurgitation. There is mild tricuspid regurgitation. The right ventricular systolic pressure is estimated to be at least 31 mmHg based on an estimated right atrial pressure of 3 mm Hg. There is aortic root sclerosis/calcification. The ascending aorta is mildly enlarged. Procedure: A two-dimensional transthoracic echocardiogram with color flow and Doppler was performed. The study quality was technically good. The patient had an echocardiogram, but there is no comparison study available. The patient was in normal sinus rhythm during the exam. Left Ventricle: The left ventricle is normal in size. Proximal septal thickening is noted. There is no thrombus. Trabeculae near apex are visualized. No thrombus is observed. A false chord is noted (normal variant). The ejection fraction is estimated to be 60-65%. The left ventricular ejection fraction is normal. There are no focal wall motion abnormalities. Grade II diastolic dysfunction with elevated left atrial pressure. Right Ventricle: The right ventricle is normal in size and function. Atria: The left atrial size is normal. The right atrium is moderately dilated. There is no Doppler evidence for an interatrial shunt. Mitral Valve: There is mild to moderate mitral annular calcification. The mitral valve leaflets appear mildly thickened. The mitral valve chordae are thickened and/or calcified. There is mild mitral regurgitation. Aortic Valve: The aortic valve is trileaflet. The aortic valve is moderately calcified. There is mildly reduced leaflet mobility. There is mild aortic stenosis. The peak aortic velocity is 2.16 m/sec. The aortic valve mean gradient is 10.9 mmHg. The calculated aortic valve area is 1.8 cm2. There is mild to moderate aortic regurgitation. Tricuspid Valve: The tricuspid valve leaflets are thin and pliable. There is mild tricuspid regurgitation. The right ventricular systolic pressure is estimated to be at least 31 mmHg based on an estimated right atrial pressure of 3 mm Hg. Pulmonic Valve: The pulmonic valve leaflets are thin and pliable; valve motion is normal. There is no pulmonic valvular regurgitation. Great Vessels: The aortic root is mildly dilated. There is aortic root sclerosis/calcification. The ascending aorta is mildly enlarged. The pulmonary artery is normal size. The IVC is of normal diameter and collapses greater than 50% with a sniff. This suggests a low right atrial pressure of 3 mm Hg. Pericardium/ Pleura There is no pericardial effusion. There is no pleural effusion. MMode/2D Measurements & Calculations LVIDd: 4.5 cm LVOT diam: 2.1 cm LVIDs: 3.2 cm Ao root diam: 3.7 cm FS: 29.1 % asc Aorta Diam: 3.7 cm EPSS: 0.35 cm IVSd: 0.99 cm LVPWd: 0.93 cm LV fierro. diameter/BSA (cm/m^2): 2.5 LV sys. diameter/BSA (cm/m^2): 1.7 LA A2 area: 15.0 cm2 RA long axis: 5.4 cm LA A4 area: 23.0 cm2 RA area: 23.0 cm2 LA length (vol): 6.8 cm RA vol: 82.3 ml LA vol: 43.0 ml RA : 45.3 ml/m2 LA vol index: 23.7 ml/m2 IVC diam: 1.4 cm RVD1 (basal): 4.0 cm RVD2 (mid): 3.1 cm TAPSE: 2.3 cm Doppler Measurements & Calculations Ao V2 max: 215.9 cm/sec LVOT Max Magdiel: 114.8 cm/sec Ao V2 mean: 156.7 cm/sec LV V1 max P.3 mmHg Ao max P.7 mmHg LV V1 VTI: 30.5 cm Ao mean P.9 mmHg SHELBY(I,D): 2.0 cm2 Ao V2 VTI: 51.3 cm SHELBY(V,D): 1.8 cm2 sev ratio: 0.60 SHELBY indexed to BSA (cm^2/m^2): 1.1 AI P1/2t: 423.2 msec AI dec slope: 315.4 cm/sec2 MV E max magdiel: 81.2 cm/sec TR max magdiel: 263.4 cm/sec MV A max magdiel: 76.0 cm/sec TR max P.7 mmHg MV E/A: 1.1 PA V2 max: 150.2 cm/sec Med Peak E' Magdiel: 4.9 cm/sec PA V2 mean: 91.0 cm/sec E/E' med: 16.4 PA mean P.0 mmHg Lat Peak E' Magdiel: 5.9 cm/sec PA pr(Accel): 41.3 mmHg E/E' lat: 13.9 E/e' average: 15.1 MV dec time: 0.20 sec SV(LVOT): 103.6 ml Reading Physician:05:25 PM
== END ==
LOC: ECHO 13:29
PROVIDERS: PCP Family Medicine; Referring Provider Family Medicine; Visit Provider Family Medicine
DX: I08.3 Combined rheumatic disorders of mitral, aortic and tricuspid valves (principal); I77.89 Other specified disorders of arteries and arterioles; I77.810 Thoracic aortic ectasia; R01.1 Cardiac murmur, unspecified; R53.83 Other fatigue
CPT/HCPCS: 93306